=== PATIENT | female | born 1960 | race Caucasian/White ===

== ENCOUNTER 2017-11-27 08:42 | Inpatient (IN) | payer OTHER ==
[2017-11-27 08:52] VITALS: BMI 37.0
--- NOTE | 2017-11-27 09:29 | PDOC ---
History of Present Illness - General History Source: Patient Exam Limitations: No Limitations - History of Present Illness Initial Comments: 11/27/17 10:41 The patient is a 57 year old female with a significant PMH of HTN, hyperlipidemia, cardiac stent placement, diverticulosis, and chronic constipation who presents to the emergency department with worsening right sided facial swelling beginning approximately 3 days ago. She reports her swelling initially began in the right lower cheek but has since spread to the tissue under her right eye and the right submental region. She reports seeing Dr. Moran yesterday and being prescribed Clindamycin but presents today after her swelling has not subsided. She reports facial pain only when she opens her mouth wide. The patient denies any difficulty swallowing or breathing She denies any limitations in neck movement. The patient denies chest pain, shortness of breath, headache and dizziness. Denies fever, chills, nausea, vomit, diarrhea and constipation. Denies dysuria, frequency, urgency and hematuria. Allergies: Naproxen sodium. Lactose Past surgical history: Cardiac stent placement (2014). Social history: Current everyday smoker. No reported alcohol or drug use. PCP: Dr. Moran <Davey Dangelo - Last Filed: 11/27/17 10:42> - General History Source: Patient Exam Limitations: No Limitations <Taya Camarena - Last Filed: 11/30/17 19:54> - General Chief Complaint: Edema Stated Complaint: FACE SWELLING Time Seen by Provider: 11/27/17 09:28 Past History <Davey Dangelo - Last Filed: 11/27/17 10:42> - Past Medical History COPD: No GI Disorders: Yes (diverticulosis, chronic constipation) HTN: Yes Hypercholesterolemia: Yes - Surgical History Cardiac Surgery: Yes (stent 2014) - Immunization History Immunization Up to Date: Yes - Suicide/Smoking/Psychosocial Hx Smoking Status: Yes Smoking History: Current every day smoker Have you smoked in the past 12 months: No Number of Cigarettes Smoked Daily: 5 If you are a former smoker, when did you quit?: couple of months Information on smoking cessation initiated: No 'Breaking Loose' booklet given: 03/15/15 Hx Alcohol Use: No Drug/Substance Use Hx: No Substance Use Type: None Hx Substance Use Treatment: No <Taya Camarena - Last Filed: 11/30/17 19:54> - Past Medical History Allergies/Adverse Reactions: Allergies Allergy/AdvReac Type Severity Reaction Status Date / Time naproxen sodium [From Aleve] AdvReac Rash Verified 11/27/17 08:44 LACTOSE Allergy Uncoded 11/27/17 08:44 Home Medications: Ambulatory Orders Aspirin [ASA -] 81 mg PO HS 08/26/14 Olmesartan/Hydrochlorothiazide [Benicar Hct 40-12.5 mg Tablet] 1 each PO DAILY 08/26/14 Nebivolol [Bystolic -] 10 mg PO DAILY 11/08/15 Amlodipine Besylate [Norvasc -] 5 mg PO DAILY tablet 11/09/15 Clopidogrel Bisulfate [Plavix -] 75 mg PO DAILY tablet 11/09/15 Polyethylene Glycol 3350 [Miralax 119 gm Btl -] 17 gm PO DAILY bottle 11/09/15 Rosuvastatin [Crestor -] 5 mg PO HS tablet 11/09/15 Amox-Tr/K Cl [Augmentin - 875Mg Tablet] 1 tab PO BID #10 tablet MDD 2 11/29/17 Review of Systems - Review of Systems Able to Perform ROS?: Yes Comments:: 11/27/17 10:41 GENERAL/CONSTITUTIONAL: No fever or chills. No weakness. HEAD, EYES, EARS, NOSE AND THROAT: No change in vision. No ear pain or discharge. No sore throat. CARDIOVASCULAR: No chest pain or shortness of breath. RESPIRATORY: No cough, wheezing, or hemoptysis. GASTROINTESTINAL: No nausea, vomiting, diarrhea or constipation. GENITOURINARY: No dysuria, frequency, or change in urination. MUSCULOSKELETAL: (+) Right sided cheek, jaw, and submental swelling. No neck or back pain. SKIN: No rash NEUROLOGIC: No headache, vertigo, loss of consciousness, or change in strength/ sensation. ENDOCRINE: No increased thirst. No abnormal weight change. HEMATOLOGIC/LYMPHATIC: No anemia, easy bleeding, or history of blood clots. ALLERGIC/IMMUNOLOGIC: No hives or skin allergy. <Davey Dangelo - Last Filed: 11/27/17 10:42> *Physical Exam - Vital Signs Last Vital Signs Temp Pulse Resp BP Pulse Ox 98.2 F 92 H 16 140/82 98 11/27/17 08:46 11/27/17 08:46 11/27/17 08:46 11/27/17 08:46 11/27/17 09:35 - Physical Exam Comments: 11/27/17 10:42 GENERAL: Awake, alert, and fully oriented, in no acute distress HEAD: (+) Right mandible swelling. (+) Right cheek swelling with tenderness, no erythema. (+) Submental swelling, no erythema. EYES: PERRLA, EOMI, sclera anicteric, conjunctiva clear ENT: Auricles normal inspection, hearing grossly normal, nares patent, oropharynx clear without exudates. Moist mucosa. No drooling. NECK: Normal ROM, supple, no lymphadenopathy, JVD, or masses LUNGS: Breath sounds equal, clear to auscultation bilaterally. No wheezes, and no crackles HEART: Regular rate and rhythm, normal S1 and S2, no murmurs, rubs or gallops ABDOMEN: Soft, nontender, normoactive bowel sounds. No guarding, no rebound. No masses EXTREMITIES: Normal range of motion, no edema. No clubbing or cyanosis. No cords, erythema, or tenderness NEUROLOGICAL: Cranial nerves II through XII grossly intact. Normal speech, normal gait SKIN: Warm, Dry, normal turgor, no rashes or lesions noted. <Davey Dangelo - Last Filed: 11/27/17 10:42> - Vital Signs Last Vital Signs Temp Pulse Resp BP Pulse Ox 98.2 F 92 H 16 140/82 98 11/27/17 08:46 11/27/17 08:46 11/27/17 08:46 11/27/17 08:46 11/27/17 08:46 <Taya Camarena - Last Filed: 11/30/17 19:54> ED Treatment Course - LABORATORY CBC & Chemistry Diagram: 11/27/17 09:39 11/27/17 09:39 - ADDITIONAL ORDERS Additional order review: 11/27/17 09:39 RBC 5.21 H D MCV 86.5 MCHC 33.3 RDW 13.7 MPV 7.5 Neutrophils % 67.0 Lymphocytes % 26.5 D Monocytes % 5.0 Eosinophils % 1.2 Basophils % 0.3 - Consult/PCP Time Called: 10:10 Case discussed with personal care physician: Ehsan Moran <Davey Dangelo - Last Filed: 11/27/17 10:42> - LABORATORY CBC & Chemistry Diagram: 11/27/17 09:39 11/27/17 09:39 <Taya Camarena - Last Filed: 11/30/17 19:54> Medical Decision Making - Medical Decision Making 11/27/17 09:44 This is a 57-year-old female with a history of hypertension, coronary artery disease status post a single stent who presents emergency department due to facial swelling. Patient states she was in her usual state of health until possibly 4 days ago when she noted right facial swelling and pain. Pain was located at the mandible. Patient states her swelling increased such that involve the entire right side of her face. She was seen by her primary care physician yesterday. Clindamycin was initiated, however her swelling worsened to now involve the submandibular area. No fever, no chills. No wheezing. No difficulty swallowing. No prior episodes like this. Differential diagnosis includes but is not limited to: Periapical abscess, facial abscess, Will do: Labs, IV antibiotics, facial bones and soft tissue neck with contrast Plan will be for admission Consult to ID weight loss consultant Dr Jimenez is in the ER She was consulted on this patient 11/27/17 10:57 Laboratory Tests 11/27/17 11/27/17 09:39 09:39 WBC 7.2 Hgb 15.0 D Hct 45.0 D Plt Count 167 Sodium 139 Potassium 3.9 Chloride 104 Carbon Dioxide 28 BUN 12 Creatinine 0.5 L Random Glucose 109 H 11/27/17 11:25 EKG: SR rate of 72 bpm, axis is nml, intervals nml, no ST elevations or depressions CT delayed call placed to radiologist He states he is having difficulty reading this CT scan Does not believe the source of this infection is this patient's dentition Dr Jimenez has seen this patient Recommends Vancomycin and Unasyn These medications were ordered Clinical impression: facial abscess, initial presentation <Taya Camarena - Last Filed: 11/30/17 19:54> *DC/Admit/Observation/Transfer - Attestations Scribe Attestion: 11/27/17 10:42 Documentation prepared by Davey Dangelo, acting as district medical examiner for Taya Camarena MD. <Davey Dangelo - Last Filed: 11/27/17 10:42> - Discharge Dispostion Admit: Yes <Taya Camarena - Last Filed: 11/30/17 19:54> Diagnosis at time of Disposition: Facial abscess - Discharge Dispostion Disposition: HOME Condition at time of disposition: Improved
[2017-11-27] MEDS ORDERED: SODIUM CHLORIDE 1,000 ML IV STA (09:36)
[2017-11-27 10:12] LABS: BASO % 0.3 % (0-2.0); EOS % 1.2 % (0-4.5); LYMPH % 26.5 % (8-40); MCH 28.8 pg (25.7-33.7); MCHC 33.3 g/dl (32.0-36.0); MEAN CELL VOLUME 86.5 fl (80-96); MEAN PLT VOLUME 7.5 fl (7.5-11.1); PLATELET COUNT 167 K/MM3 (134-434); RBC 5.21 M/mm3 (3.60-5.2); RDW 13.7 % (11.6-15.6); WHITE BLOOD COUNT 7.2 K/mm3 (4.0-10.0)
[2017-11-27 10:37] LABS: ALBUMIN 3.8 g/dl (3.4-5.0); ALK PHOS 93 U/L (45-117); ANION GAP 7 (8-16); BILIRUBIN,TOTAL 0.4 mg/dL (0.2-1.0); BLOOD UREA NITROGEN 12 mg/dL (7-18); CALCIUM 8.6 mg/dL (8.5-10.1); CHLORIDE 104 mmol/L (98-107); CO2 28 mmol/L (21-32); CREATININE 0.5 mg/dL (0.55-1.02); GLUCOSE,RANDOM 109 mg/dL (74-106); POTASSIUM 3.9 mmol/L (3.5-5.1); SGOT/AST 18 U/L (15-37); SGPT/ALT 33 U/L (12-78); SODIUM 139 mmol/L (136-145)
[2017-11-27] MEDS ORDERED: ACETAMINOPHEN 1000 MG/100 ML VIAL (NON FORMULARY) IVPB ONE (13:03)
[2017-11-27] MEDS ORDERED: INSULIN (NOVOLOG) ASPART 100 UNITS/ML 10ML VIAL ONE (13:04)
[2017-11-27] MEDS ORDERED: ACETAMINOPHEN INJECTION 100 ML IVPB ONE (13:05)
--- NOTE | 2017-11-27 14:44 | PDOC ---
ED Treatment Course - LABORATORY CBC & Chemistry Diagram: 11/27/17 09:39 11/27/17 09:39 - ADDITIONAL ORDERS Additional order review: Laboratory Results 11/27/17 09:39 Sodium 139 Potassium 3.9 Chloride 104 Carbon Dioxide 28 Anion Gap 7 L BUN 12 Creatinine 0.5 L Creat Clearance w eGFR > 60 Random Glucose 109 H Calcium 8.6 Total Bilirubin 0.4 D AST 18 ALT 33 Alkaline Phosphatase 93 Total Protein 7.0 Albumin 3.8 11/27/17 09:39 RBC 5.21 H D MCV 86.5 MCHC 33.3 RDW 13.7 MPV 7.5 Neutrophils % 67.0 Lymphocytes % 26.5 D Monocytes % 5.0 Eosinophils % 1.2 Basophils % 0.3 - RADIOLOGY Radiology Studies Ordered: Category Date Time Status FACIAL BONES CT W/O CONTRAST [CT] Stat CT Scan 11/27/17 09:36 [address] TISSUE NECK [address] WITH CONTR [CT] Stat CT Scan 11/27/17 09:36 Taken CHEST PA & LAT [RAD] Stat Radiology 11/27/17 09:48 Completed - Medications Given in the ED: ED Medications Discontinued Medications Generic Name Dose Route Start Last Admin Trade Name Freq PRN Reason Stop Dose Admin Acetaminophen 1,000 mg 11/27/17 13:03 11/27/17 13:13 Ofirmev Injection - IVPB 11/27/17 13:04 1,000 mg ONCE ONE Administration - Consult/PCP Time Called: 10:10 Case discussed with personal care physician: Ehsan Moran *DC/Admit/Observation/Transfer Diagnosis at time of Disposition: Facial abscess - Discharge Dispostion Condition at time of disposition: Stable Admit: Yes - Referrals Referrals: Ehsan Moran MD [Primary Care Provider] - - Patient Instructions - Post Discharge Activity
[2017-11-27] MEDS ORDERED: ACETAMINOPHEN 325 MG TABLET (FP) PO PRN (15:50)
--- NOTE | 2017-11-27 16:24 | CON.ID ---
Consult Consult Specialty:: infectous disease Referred by:: subhash Reason for Consultation:: right facial swellilng - History of Present Illness Chief Complaint: right facial swelling History of Present Illness: 57 year old female admitted from home- no fevers, no DM- developed right cheek swelling, went to see Dr Moran, started on Clindamycin this am woke up with edema and erythema extending to her right cheek and neck no fevers no dental work has upper dentures, lower partials history of sinus infections no sore throat- history of tonsillectomy many years ago no scratches no difficulty swallowing - History Source History Provided By: Patient, Significant Other Limitations to Obtaining History: No Limitations - Past Medical History Cardio/Vascular: Yes: CAD, HTN Gastrointestinal: Yes: Constipation, Diverticulosis, Irritable Bowel Disease ...LMP: 01/12/14 - Past Surgical History Past Surgical History: Yes: Colonoscopy Additional Surgical History: tonsillectomy, left wrist surgery - Alcohol/Substance Use Hx Alcohol Use: No - Smoking History Smoking history: Current every day smoker Have you smoked in the past 12 months: No Aproximately how many cigarettes per day: 5 If you are a former smoker, when did you quit?: couple of months - Social History Usual Living Arrangement: With Significant Other ADL: 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 - Allergies Allergies/Adverse Reactions: Allergies Allergy/AdvReac Type Severity Reaction Status Date / Time naproxen sodium [From Aleve] AdvReac Rash Verified 11/27/17 08:44 LACTOSE Allergy Uncoded 11/27/17 08:44 - Home Medications Home Medications: Ambulatory Orders Aspirin [ASA -] 81 mg PO HS 08/26/14 Olmesartan/Hydrochlorothiazide [Benicar Hct 40-12.5 mg Tablet] 1 each PO DAILY 08/26/14 Nebivolol [Bystolic -] 10 mg PO DAILY 11/08/15 Amlodipine Besylate [Norvasc -] 5 mg PO DAILY tablet 11/09/15 Clopidogrel Bisulfate [Plavix -] 75 mg PO DAILY tablet 11/09/15 Polyethylene Glycol 3350 [Miralax 119 gm Btl -] 17 gm PO DAILY bottle 11/09/15 Rosuvastatin [Crestor -] 5 mg PO HS tablet 11/09/15 Family Disease History - Family Disease History Family History: Unremarkable Review of Systems - Review of Systems Constitutional: denies: Chills, Fever Eyes: reports: No Symptoms. denies: Blind Spots, Double Vision HENT: reports: No Symptoms. denies: Difficult Swallowing Neck: reports: No Symptoms Cardiovascular: reports: No Symptoms. denies: Chest Pain Respiratory: reports: No Symptoms. denies: Cough Gastrointestinal: reports: No Symptoms. denies: Abdominal Pain Genitourinary: reports: No Symptoms Breasts: reports: No Symptoms Reported Musculoskeletal: reports: No Symptoms Integumentary: reports: No Symptoms Physical Exam Vital Signs: Vital Signs Temperature 98.2 F 11/27/17 08:46 Pulse Rate 92 H 11/27/17 08:46 Respiratory Rate 16 11/27/17 08:46 Blood Pressure 140/82 11/27/17 08:46 O2 Sat by Pulse Oximetry (%) 98 11/27/17 09:35 Constitutional: Yes: Well Nourished, No Distress Eyes: Yes: Conjunctiva Clear, EOM Intact HENT: Yes: Atraumatic, Normocephalic, Other (induration right cheek swelling right cheek). No: Nasal Congestion, Pharyngeal Erythema, Thrush, Tonsillar Exudate Neck: Yes: Supple Cardiovascular: Yes: Regular Rate and Rhythm Respiratory: Yes: Regular, CTA Bilaterally Gastrointestinal: Yes: Normal Bowel Sounds, Soft. No: Tenderness, Epigastrium ...Rectal Exam: Yes: Deferred Extremities: Yes: WNL Edema: No Psychiatric: Yes: Alert, Oriented Labs: CBC, BMP 11/27/17 09:39 11/27/17 09:39 Imaging - Results Chest X-ray: Report Reviewed (ct can reviewed- small collection anterior to the right mandible, no parotid swelling no dental or maxillary sinus disease) Problem List - Problems (1) Facial abscess Code(s): L02.01 - CUTANEOUS ABSCESS OF FACE Assessment/Plan probable earlly facial abscess- ?source vanco/unasyn for now she is a smoker- would need ENT eval either inpt or outpt given ct scan findings to r/o malignancy thanks
[2017-11-27] MEDS ORDERED: AMPICILLIN NA/SULBACTAM NA 1.5 GM in SODIUM CHLORIDE 100 ML IVPB ONE (17:16)
--- NOTE | 2017-11-27 17:34 | HP ---
Admitting History and Physical - Primary Care Physician PCP: Ehsan Moran - Admission Chief Complaint: FACIAL ABSCESS WORSENING FAILED ON ORAL ABX History of Present Illness: 57 Y/O FEMALE HISTORY OF CAD, HTN, LIPIDEMIA, OBESITY, TOBACCO SMOKER HERE WITH WORSENING OF FACIAL ABSCESS RIGHT SIDED. PATIENT WAS STARTED ON CLINDAMYCIN OUTPATIENT AND FAILED. 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 - Allergies Allergies/Adverse Reactions: Allergies Allergy/AdvReac Type Severity Reaction Status Date / Time naproxen sodium [From Aleve] AdvReac Rash Verified 11/27/17 08:44 LACTOSE Allergy Uncoded 11/27/17 08:44 - Home Medications Home Medications: Ambulatory Orders Aspirin [ASA -] 81 mg PO HS 08/26/14 Olmesartan/Hydrochlorothiazide [Benicar Hct 40-12.5 mg Tablet] 1 each PO DAILY 08/26/14 Nebivolol [Bystolic -] 10 mg PO DAILY 11/08/15 Amlodipine Besylate [Norvasc -] 5 mg PO DAILY tablet 11/09/15 Clopidogrel Bisulfate [Plavix -] 75 mg PO DAILY tablet 11/09/15 Polyethylene Glycol 3350 [Miralax 119 gm Btl -] 17 gm PO DAILY bottle 11/09/15 Rosuvastatin [Crestor -] 5 mg PO HS tablet 11/09/15 Review of Systems - Review of Systems Constitutional: reports: Fever, Weakness Eyes: reports: Other HENT: reports: Nasal Congestion (RIGHT SIDED FACIAL EDEMA TENDERNESS), Other Neck: reports: Swollen Glands, Other (RIGHT SIDED NECK EDEMA) Cardiovascular: reports: No Symptoms Respiratory: reports: No Symptoms Gastrointestinal: reports: No Symptoms Musculoskeletal: reports: No Symptoms Integumentary: reports: No Symptoms Neurological: reports: No Symptoms Endocrine: reports: No Symptoms Hematology/Lymphatic: reports: No Symptoms Psychiatric: reports: No Symptoms Physical Examination Vital Signs: Vital Signs Temperature 98.2 F 11/27/17 08:46 Pulse Rate 92 H 11/27/17 08:46 Respiratory Rate 16 11/27/17 08:46 Blood Pressure 140/82 11/27/17 08:46 O2 Sat by Pulse Oximetry (%) 98 11/27/17 09:35 Constitutional: Yes: Moderate Distress Eyes: Yes: Other HENT: Yes: Other Neck: Yes: Other (RIGHT SIDED FACIAL EDEMA EXTENDING DOWN TO NECK RIGHT SIDED WITH TENDERNESS) Cardiovascular: Yes: WNL Respiratory: Yes: WNL Gastrointestinal: Yes: WNL Renal/: Yes: WNL Musculoskeletal: Yes: WNL Extremities: Yes: WNL Edema: No Peripheral Pulses WNL: Yes Integumentary: Yes: WNL Wound/Incision: Yes: Clean/Dry Neurological: Yes: WNL ...Motor Strength: WNL Psychiatric: Yes: WNL Labs: CBC, BMP 11/27/17 09:39 11/27/17 09:39 Imaging - Results Cat Scan: Report Reviewed Problem List - Problems (1) Facial abscess Assessment/Plan: FAILED ON ORAL ANTIBIOTICS OUTPATIENT Code(s): L02.01 - CUTANEOUS ABSCESS OF FACE Assessment/Plan ID/ENT CONSULT HEAD AND NECK SURGERY EVAL IV ABX TYLENOL PRN
[2017-11-27] MEDS ORDERED: VANCOMYCIN 1,000 MG in DEXTROSE 5%-WATER - 250 ML IVPB SCH (22:00)
[2017-11-27] MEDS: ROSUVASTATIN CA 5 MG TABLET (FP) PO SCH (23:00)
[2017-11-27] MEDS ORDERED: VANCOMYCIN 1,000 MG in DEXTROSE 5%-WATER - 250 ML IVPB ONE (23:30)
--- NOTE | 2017-11-28 09:18 | CONSULT ---
Consult Consult Specialty:: Surgery, Head and Neck surgery. Referred by:: Luisa Celaya Reason for Consultation:: Right sided facial pain, and swelling. - History of Present Illness Chief Complaint: C/O Pain and selling of the right side of her face and right upper neck for the last 5 days. She woke up with swelling and pain . She has dentures and is edentulous. She has been on antibiotics for the past 3 days. History of Present Illness: 57 year old , woman c/o pain and swelling of the left side of her face and right - History Source History Provided By: Patient Limitations to Obtaining History: No Limitations - Past Medical History Cardio/Vascular: Yes: CAD, HTN Gastrointestinal: Yes: Constipation, Diverticulosis, Irritable Bowel Disease ...LMP: 01/12/14 ...: No - Past Surgical History Past Surgical History: Yes: Colonoscopy Additional Surgical History: tonsillectomy, left wrist surgery - Alcohol/Substance Use Hx Alcohol Use: No - Smoking History Smoking history: Former smoker Have you smoked in the past 12 months: Yes Aproximately how many cigarettes per day: 5 If you are a former smoker, when did you quit?: couple of months - Social History Usual Living Arrangement: With Significant Other ADL: 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 - Allergies Allergies/Adverse Reactions: Allergies Allergy/AdvReac Type Severity Reaction Status Date / Time naproxen sodium [From Aleve] AdvReac Rash Verified 11/27/17 08:44 LACTOSE Allergy Uncoded 11/27/17 08:44 - Home Medications Home Medications: Ambulatory Orders Aspirin [ASA -] 81 mg PO HS 08/26/14 Olmesartan/Hydrochlorothiazide [Benicar Hct 40-12.5 mg Tablet] 1 each PO DAILY 08/26/14 Nebivolol [Bystolic -] 10 mg PO DAILY 11/08/15 Amlodipine Besylate [Norvasc -] 5 mg PO DAILY tablet 11/09/15 Clopidogrel Bisulfate [Plavix -] 75 mg PO DAILY tablet 11/09/15 Polyethylene Glycol 3350 [Miralax 119 gm Btl -] 17 gm PO DAILY bottle 11/09/15 Rosuvastatin [Crestor -] 5 mg PO HS tablet 11/09/15 Physical Exam Vital Signs: Vital Signs Temperature 97.7 F 11/28/17 08:15 Pulse Rate 82 11/28/17 08:15 Respiratory Rate 18 11/28/17 08:15 Blood Pressure 144/75 11/28/17 08:15 O2 Sat by Pulse Oximetry (%) 96 11/28/17 04:05 HENT: Yes: Other (Oral cavity is normal. The tongue and floor of mouth is smooth , not indurated , No blood in the oral cavity. With a finger in the oral mcavity and palpation of the right cheek , a smooth tender round , mobile mass is p[alpated , ? parotid lymph node on the right.) Neck: Yes: Lymphadenopathy (? Right upper cervical lymphadenopathy. smooth , ill defined.) Labs: CBC, BMP 11/27/17 09:39 11/27/17 09:39 Imaging - Results Cat Scan: Report Reviewed, Image Reviewed Problem List - Problems (1) Lymphadenopathy of head and neck region Code(s): R59.0 - LOCALIZED ENLARGED LYMPH NODES (2) Enlarged lymph node in neck Code(s): R59.0 - LOCALIZED ENLARGED LYMPH NODES (3) Swelling of right side of face Code(s): R22.0 - LOCALIZED SWELLING, MASS AND LUMP, HEAD (4) Abnormal CT scan, neck Code(s): R93.8 - ABNORMAL FINDINGS ON DIAGNOSTIC IMAGING OF BODY STRUCTURES (5) Hypertension Code(s): I10 - ESSENTIAL (PRIMARY) HYPERTENSION (6) Coronary artery disease Code(s): I25.10 - ATHSCL HEART DISEASE OF [place] CORONARY ARTERY W/O ANG PCTRS (7) Coronary artery disease Code(s): I25.10 - ATHSCL HEART DISEASE OF [place] CORONARY ARTERY W/O ANG PCTRS Qualifiers: Coronary Disease-Associated Artery/Lesion type: unspecified vessel or lesion type Associated angina: without angina Assessment/Plan ? Probably an inflammatory process in the head and neck , with lymphadenitis. Continue antibiotics. Follow up Ct scan of head and neck and may be examination of the head and neck and direct laryngoscopy , under anesthesia to rule out head and neck malignancy, as patient is a smoker. patient is informed , will follow.
[2017-11-28] MEDS ORDERED: AMPICILLIN NA/SULBACTAM NA 1.5 GM in SODIUM CHLORIDE 100 ML IVPB ONE (10:04)
--- NOTE | 2017-11-28 10:10 | PN ---
Progress Note, Physician Chief Complaint: right facial swelling reduced per patient got iv vancomycin and iv Unasyn in ER seen by Surgery will need laryngoscope under GA will need cardiac clearance- will get cardiology to see patient - Current Medication List Current Medications: Active Medications Acetaminophen (Tylenol -) 650 mg PO Q6H PRN PRN Reason: PAIN LEVEL 1 - 3 Clopidogrel Bisulfate (Plavix -) 75 mg PO DAILY [facility] Hydrochlorothiazide (Hctz -) 12.5 mg PO DAILY [facility] Nebivolol (Bystolic -) 10 mg PO DAILY [facility] Rosuvastatin Calcium (Crestor -) 5 mg PO HS [facility] Last Admin: 11/27/17 23:00 Dose: 5 mg Valsartan (Diovan -) 160 mg PO DAILY [facility] - Objective Vital Signs: Vital Signs Temperature 97.7 F 11/28/17 08:15 Pulse Rate 82 11/28/17 08:15 Respiratory Rate 18 11/28/17 08:15 Blood Pressure 144/75 11/28/17 08:15 O2 Sat by Pulse Oximetry (%) 96 11/28/17 04:05 Constitutional: Yes: Calm HENT: Yes: Other (right facial swelling) Cardiovascular: Yes: Regular Rate and Rhythm, S1, S2 Respiratory: Yes: CTA Bilaterally Gastrointestinal: Yes: Normal Bowel Sounds, Soft Neurological: Yes: Alert, Oriented Labs: CBC, BMP 11/27/17 09:39 11/27/17 09:39 Problem List - Problems (1) Abnormal CT scan, neck Assessment/Plan: hypodensity noted overlying the buccal cortex in right mandible - h/o smoking will need laryngoscope under GA seen by surgery will need to be off plavix for atleast 3-4 days will need to get this procedure as outpatient when ready Code(s): R93.8 - ABNORMAL FINDINGS ON DIAGNOSTIC IMAGING OF BODY STRUCTURES (2) Enlarged lymph node in neck Assessment/Plan: iv abx per ID got vancomycin in ER Code(s): R59.0 - LOCALIZED ENLARGED LYMPH NODES (3) Swelling of right side of face Assessment/Plan: see above much improved Code(s): R22.0 - LOCALIZED SWELLING, MASS AND LUMP, HEAD
[2017-11-28] MEDS ORDERED: PT OWN MED DRAWER 7, Y5N ONE ×2 (10:45→10:55)
[2017-11-28] MEDS: VALSARTAN 160 MG TABLET (UD) PO SCH (10:47)
[2017-11-28] MEDS: NEBIVOLOL 10 MG TABLET (FP) PO SCH (10:48)
[2017-11-28] MEDS: HYDROCHLOROTHIAZIDE 12.5 MG CAPSULE (FP) PO SCH (10:50)
[2017-11-28] MEDS: CLOPIDOGREL BISULFATE 75 MG TABLET (FP) PO SCH ×2 (10:51→21:32)
[2017-11-28] MEDS ORDERED: VANCOMYCIN 1,250 MG in DEXTROSE 5%-WATER - 250 ML IVPB ONE (11:30)
--- NOTE | 2017-11-28 11:46 | EKG ---
Test Reason : Blood Pressure : / mmHG Vent. Rate : 072 BPM Atrial Rate : 072 BPM P-R Int : 162 ms QRS Dur : 074 ms QT Int : 392 ms P-R-T Axes : 057 012 002 degrees QTc Int : 429 ms POOR DATA QUALITY, INTERPRETATION MAY BE ADVERSELY AFFECTED NORMAL SINUS RHYTHM SEPTAL INFARCT , AGE UNDETERMINED ABNORMAL ECG WHEN COMPARED WITH ECG OF 20-JAN-2016 22:55, NO SIGNIFICANT CHANGE WAS FOUND Confirmed by NEYDA BLANKENSHIP, ANTHONY ([id number]) on 11/28/2017 11:46:15 AM Referred By: Confirmed By:ANTHONY FAYE MD
--- NOTE | 2017-11-28 12:05 | CON.CARD ---
Cardiology Consult (text) - Consultation Consultation Note: cc: facial abscess/pain hpi: 57 f hx htn, hld, obesity, IBS, cad s/p remote pci sent by pmd for face infection. No cardiac sxs. No cp, sob, palps, dizzy, loc, pnd, orthopnea, le edema. Sees dr shrestha for cardio. pmh: per hpi psh: wrist surgery fam: mom mi 59, brother had pci, +htn, +dm, no scd social: ex tob ros: per hpi; no fever, vision changes, GOOD, wt loss, cough, gib, hematuria, dysuria meds: Home Medications Medication Instructions Recorded Aspirin [ASA -] 81 mg PO HS 08/26/14 Olmesartan/Hydrochlorothiazide 1 each PO DAILY 08/26/14 [Benicar Hct 40-12.5 mg Tablet] Nebivolol [Bystolic -] 10 mg PO DAILY 11/08/15 Amlodipine Besylate [Norvasc -] 5 mg PO DAILY tablet 11/09/15 Clopidogrel Bisulfate [Plavix -] 75 mg PO DAILY tablet 11/09/15 Polyethylene Glycol 3350 [Miralax 17 gm PO DAILY bottle 11/09/15 119 gm Btl -] Rosuvastatin [Crestor -] 5 mg PO HS tablet 11/09/15 pe: Vital Signs Period Temp Pulse Resp BP Sys/Mejia Pulse Ox Last 24 Hr 97.7 F-98.9 F 78-85 18-20 118-144/66-83 96-96 nad, no jvd rrr s1s2 no mrg cta bl nl eff aaox3 no le e/c/c abd nt nd pos bs no jaundice diaphoresis pos dp pt Laboratory Last Values WBC 7.2 K/mm3 (4.0-10.0) 11/27/17 09:39 RBC 5.21 M/mm3 (3.60-5.2) H D 11/27/17 09:39 Hgb 15.0 GM/dL (10.7-15.3) D 11/27/17 09:39 Hct 45.0 % (32.4-45.2) D 11/27/17 09:39 MCV 86.5 fl (80-96) 11/27/17 09:39 MCH 28.8 pg (25.7-33.7) D 11/27/17 09:39 MCHC 33.3 g/dl (32.0-36.0) 11/27/17 09:39 RDW 13.7 % (11.6-15.6) 11/27/17 09:39 Plt Count 167 K/MM3 (134-434) 11/27/17 09:39 MPV 7.5 fl (7.5-11.1) 11/27/17 09:39 Neutrophils % 67.0 % (42.8-82.8) 11/27/17 09:39 Lymphocytes % 26.5 % (8-40) D 11/27/17 09:39 Monocytes % 5.0 % (3.8-10.2) 11/27/17 09:39 Eosinophils % 1.2 % (0-4.5) 11/27/17 09:39 Basophils % 0.3 % (0-2.0) 11/27/17 09:39 Sodium 139 mmol/L (136-145) 11/27/17 09:39 Potassium 3.9 mmol/L (3.5-5.1) 11/27/17 09:39 Chloride 104 mmol/L (98-107) 11/27/17 09:39 Carbon Dioxide 28 mmol/L (21-32) 11/27/17 09:39 Anion Gap 7 (8-16) L 11/27/17 09:39 BUN 12 mg/dL (7-18) 11/27/17 09:39 Creatinine 0.5 mg/dL (0.55-1.02) L 11/27/17 09:39 Creat Clearance w eGFR > 60 (>60) 11/27/17 09:39 Random Glucose 109 mg/dL (74-106) H 11/27/17 09:39 Calcium 8.6 mg/dL (8.5-10.1) 11/27/17 09:39 Total Bilirubin 0.4 mg/dL (0.2-1.0) D 11/27/17 09:39 AST 18 U/L (15-37) 11/27/17 09:39 ALT 33 U/L (12-78) 11/27/17 09:39 Alkaline Phosphatase 93 U/L (45-117) 11/27/17 09:39 Total Protein 7.0 g/dl (6.4-8.2) 11/27/17 09:39 Albumin 3.8 g/dl (3.4-5.0) 11/27/17 09:39 cxr: clear lungs ecg: sr, nl intervals, no ischemic changes echo 06/2014: nl lv/rv, mild tr a/p: 57 f hx htn, hld, obesity, IBS, cad s/p remote pci sent by pmd for face infection. chronic CAD without angina: -echo 06/2014: nl lv/rv, mild tr -persantine nuclear 09/27: no STs; small apical ischemia; nl EF; no TID reported -saw dr emilio barksdale cardio at that time and had cath 09/27: 80% mid RCA, other vessels normal--Resolute KRANTHI implanted -no residual ischemic substrate on cath -then had nuclear stress test here 2015, report reviewed: moderate size anterior wall ischemia -nuclear stress test images reviewed by dr shrestha then: there is no suggestion of ischemia; there is a fixed defect of mid anterior wall and apex, with minimal reversibility in apex on rest images (i.e. almost entirely fixed); there is large breast attenuation on raw images which explains the appearance on perfusion scans; there is normal LV cavity size with no TID, and normal LVEF/ wall motion. -cont home asa, plavix, bb, statin -no further inpt cardio eval required htn: -cont home meds hld: -cont statin preop: -No unstable cardiac issues at present. Pt has intermediate risk of periop cardiac events for the possible laryngoscopy. Asa and plavix can be held temporarily if needed.
--- NOTE | 2017-11-28 14:38 | PN ---
Progress Note, Physician Chief Complaint: ID Vancomycin and Unasyn Looking at her cannot see anything on her face No fever - Current Medication List Current Medications: Active Medications Acetaminophen (Tylenol -) 650 mg PO Q6H PRN PRN Reason: PAIN LEVEL 1 - 3 Clopidogrel Bisulfate (Plavix -) 75 mg PO DAILY [facility] Last Admin: 11/28/17 10:51 Dose: Not Given Hydrochlorothiazide (Hctz -) 12.5 mg PO DAILY [facility] Last Admin: 11/28/17 10:50 Dose: 12.5 mg Ampicillin Sodium/Sulbactam (Sodium 1.5 gm/ Sodium Chloride) 100 mls @ 200 mls/ hr IVPB Q6H-IV AZALEA Vancomycin HCl 1,000 mg/ (Dextrose) 250 mls @ 166.667 mls/hr IVPB Q12H AZALEA PRN Reason: Protocol Nebivolol (Bystolic -) 10 mg PO DAILY [facility] Last Admin: 11/28/17 10:48 Dose: 10 mg Rosuvastatin Calcium (Crestor -) 5 mg PO HS [facility] Last Admin: 11/27/17 23:00 Dose: 5 mg Valsartan (Diovan -) 160 mg PO DAILY [facility] Last Admin: 11/28/17 10:47 Dose: 160 mg - Objective Vital Signs: Vital Signs Temperature 97.7 F 11/28/17 08:15 Pulse Rate 82 11/28/17 08:15 Respiratory Rate 18 11/28/17 08:15 Blood Pressure 144/75 11/28/17 08:15 O2 Sat by Pulse Oximetry (%) 96 11/28/17 04:05 Constitutional: Yes: Well Nourished, No Distress HENT: Yes: Other (Indurated cyst like strucure right cheek mild tenderness not fluctuant) Labs: CBC, BMP 11/27/17 09:39 11/27/17 09:39 Assessment/Plan Laboratory Tests 11/27/17 11/27/17 09:39 09:39 WBC 7.2 Hgb 15.0 D Hct 45.0 D Plt Count 167 BUN 12 Creatinine 0.5 L Assessment Right facial abscess improving Plan Consider switch to po augmentin 875 bid along with warm soaks [facility]
[2017-11-28] MEDS: AMPICILLIN NA/SULBACTAM NA 1.5 GM in SODIUM CHLORIDE 100 ML IVPB SCH ×2 (15:00→21:05)
--- NOTE | 2017-11-28 16:08 | PN ---
Progress Note, Physician - Current Medication List Current Medications: Active Medications Acetaminophen (Tylenol -) 650 mg PO Q6H PRN PRN Reason: PAIN LEVEL 1 - 3 Clopidogrel Bisulfate (Plavix -) 75 mg PO DAILY [facility] Last Admin: 11/28/17 10:51 Dose: Not Given Hydrochlorothiazide (Hctz -) 12.5 mg PO DAILY [facility] Last Admin: 11/28/17 10:50 Dose: 12.5 mg Ampicillin Sodium/Sulbactam (Sodium 1.5 gm/ Sodium Chloride) 100 mls @ 200 mls/ hr IVPB Q6H-IV [facility] Nebivolol (Bystolic -) 10 mg PO DAILY [facility] Last Admin: 11/28/17 10:48 Dose: 10 mg Rosuvastatin Calcium (Crestor -) 5 mg PO HS [facility] Last Admin: 11/27/17 23:00 Dose: 5 mg Valsartan (Diovan -) 160 mg PO DAILY [facility] Last Admin: 11/28/17 10:47 Dose: 160 mg - Objective Vital Signs: Vital Signs Temperature 98.5 F 11/28/17 14:56 Pulse Rate 77 11/28/17 14:56 Respiratory Rate 20 11/28/17 14:56 Blood Pressure 137/76 11/28/17 14:56 O2 Sat by Pulse Oximetry (%) 96 11/28/17 04:05 Labs: CBC, BMP 11/27/17 09:39 11/27/17 09:39 Problem List - Problems (1) Lymphadenopathy of head and neck region Code(s): R59.0 - LOCALIZED ENLARGED LYMPH NODES (2) Enlarged lymph node in neck Code(s): R59.0 - LOCALIZED ENLARGED LYMPH NODES (3) Swelling of right side of face Code(s): R22.0 - LOCALIZED SWELLING, MASS AND LUMP, HEAD (4) Abnormal CT scan, neck Code(s): R93.8 - ABNORMAL FINDINGS ON DIAGNOSTIC IMAGING OF BODY STRUCTURES (5) Hypertension Code(s): I10 - ESSENTIAL (PRIMARY) HYPERTENSION (6) Coronary artery disease Code(s): I25.10 - ATHSCL HEART DISEASE OF [place] CORONARY ARTERY W/O ANG PCTRS (7) Coronary artery disease Code(s): I25.10 - ATHSCL HEART DISEASE OF [place] CORONARY ARTERY W/O ANG PCTRS Qualifiers: Coronary Disease-Associated Artery/Lesion type: unspecified vessel or lesion type Associated angina: without angina Assessment/Plan CT scan was reviewed with radiologist. ? Prominent lingual tonsil , at the base of the tongue and epiglottis, vallecula. She will need upper endoscopy/ laryngoscopy , examination of oral cavity. The patient was explained. She smoked about 6 cigarettes a day. She is on anticoagulation and has cardiac stent. Discussed with Dr. Cruz and dr. Moran. Will need cardiac clearance and to withold anticaogulation. Will probably be done as an out patient when patient is cleared.
[2017-11-28] MEDS: ROSUVASTATIN CA 5 MG TABLET (FP) PO SCH (21:33)
[2017-11-28] MEDS: amLODIPine BESYLATE 5 MG TABLET (FP) PO SCH (22:22)
[2017-11-28] MEDS ORDERED: ASPIRIN 81 MG CHEWABLE TABLETS PO SCH (22:30)
[2017-11-29] MEDS ORDERED: VANCOMYCIN 1,000 MG in DEXTROSE 5%-WATER - 250 ML IVPB SCH (00:01)
[2017-11-29] MEDS: AMPICILLIN NA/SULBACTAM NA 1.5 GM in SODIUM CHLORIDE 100 ML IVPB SCH ×2 (02:19→09:55)
--- NOTE | 2017-11-29 08:55 | DS ---
Physical Examination Vital Signs: Vital Signs Temperature 98.4 F 11/29/17 06:00 Pulse Rate 87 11/29/17 06:00 Respiratory Rate 20 11/29/17 06:00 Blood Pressure 138/74 11/29/17 06:00 O2 Sat by Pulse Oximetry (%) 96 11/28/17 09:00 Constitutional: Yes: Calm Cardiovascular: Yes: Regular Rate and Rhythm, S1, S2 Respiratory: Yes: CTA Bilaterally Gastrointestinal: Yes: Normal Bowel Sounds, Soft Edema: No Neurological: Yes: Alert, Oriented Labs: CBC, BMP 11/27/17 09:39 11/27/17 09:39 Discharge Summary Reason For Visit: ABSCESS OF FACE Current Active Problems Abnormal CT scan, neck (Acute) Coronary artery disease (Acute) Coronary artery disease (Acute) Enlarged lymph node in neck (Acute) Facial abscess (Acute) Hypertension (Acute) Lymphadenopathy of head and neck region (Acute) Swelling of right side of face (Acute) Hospital Course: - Primary Care Physician PCP: Ehsan Moran - Admission Chief Complaint: FACIAL ABSCESS WORSENING FAILED ON ORAL ABX History of Present Illness: 57 Y/O FEMALE HISTORY OF CAD, HTN, LIPIDEMIA, OBESITY, TOBACCO SMOKER HERE WITH WORSENING OF FACIAL ABSCESS RIGHT SIDED. PATIENT WAS STARTED ON CLINDAMYCIN OUTPATIENT AND FAILED. History Source: Patient, Medical Record - Past Medical History Cardiovascular: Yes: CAD, HTN Gastrointestinal: Yes: Constipation, Diverticulosis, Irritable Bowel Disease ...LMP: 01/12/14 - Past Surgical History Past Surgical History: Yes: Colonoscopy - Smoking History Smoking history: Current every day smoker Have you smoked in the past 12 months: No Aproximately how many cigarettes per day: 5 If you are a former smoker, when did you quit?: couple of months ct scan shows ill defined density overlying the buccal cortex in body of mandible on right side , - will need laryngoscopy and EGD as outpatient bc will need to hold off plavix for atleast 3-4 days explanied to patient she will make apointment and FU with PMD right facial swelling got vancomycin and unasyn and now improved willl change to po augmentin 875mg po bid for 5 days with warm soaks bid seen by cardiology - cleared for EGD but will need to be off plavix Condition: Improved - Instructions Diet, Activity, Other Instructions: augmentin 875mg po bid for 5 days Referrals: Ehsan Moran MD [Primary Care Provider] - Lizy Howell MD [Staff Physician] - 2 Weeks (schedule for laryngoscopy) - Home Medications Comprehensive Discharge Medication List: Ambulatory Orders Aspirin [ASA -] 81 mg PO HS 08/26/14 Olmesartan/Hydrochlorothiazide [Benicar Hct 40-12.5 mg Tablet] 1 each PO DAILY 08/26/14 Nebivolol [Bystolic -] 10 mg PO DAILY 11/08/15 Amlodipine Besylate [Norvasc -] 5 mg PO DAILY tablet 11/09/15 Clopidogrel Bisulfate [Plavix -] 75 mg PO DAILY tablet 11/09/15 Polyethylene Glycol 3350 [Miralax 119 gm Btl -] 17 gm PO DAILY bottle 11/09/15 Rosuvastatin [Crestor -] 5 mg PO HS tablet 11/09/15
[2017-11-29] MEDS ORDERED: PT OWN MED DRAWER 7, Y5N ONE (09:53)
[2017-11-29] MEDS: amLODIPine BESYLATE 5 MG TABLET (FP) PO SCH (09:56)
[2017-11-29] MEDS: CLOPIDOGREL BISULFATE 75 MG TABLET (FP) PO SCH (09:56)
[2017-11-29] MEDS: HYDROCHLOROTHIAZIDE 12.5 MG CAPSULE (FP) PO SCH (09:56)
[2017-11-29] MEDS: VALSARTAN 160 MG TABLET (UD) PO SCH (09:56)
[2017-11-29] MEDS: NEBIVOLOL 10 MG TABLET (FP) PO SCH (09:57)
[2017-11-29 10:06] VITALS: BP 127/84; PULSE 83; TEMP 97.9
== END 2017-11-29 11:32 | disposition home or self-care (01) | DRG 603 ==
LOC: JER 08:42 → JERBED 14:44 → J5S 11-28 03:18
PROVIDERS: ADMIT Family Medicine; ATTEND Family Medicine
DX: L02.01 Cutaneous abscess of face (principal); F17.210 Nicotine dependence, cigarettes, uncomplicated; I25.10 Atherosclerotic heart disease of native coronary artery without angina pectoris; R59.0 Localized enlarged lymph nodes; E66.9 Obesity, unspecified; Z68.38 Body mass index [BMI] 38.0-38.9, adult; Z98.61 Coronary angioplasty status; I10 Essential (primary) hypertension; E78.5 Hyperlipidemia, unspecified
CPT/HCPCS: 36415; 70486-TC; 70491-TC; 71046-TC-FY; 80053; 85025; 87040; 93005; 93010; 99285-25

== ENCOUNTER 2018-03-20 12:42 | Day surgery (SDC) | payer OTHER ==
[2018-03-19 16:16] VITALS: BMI 36.7
[2018-03-20] MEDS ORDERED: LIDOCAINE HCL 2% (20ML MULTI-DOSE VIAL) NR ONE (14:17)
[2018-03-20] MEDS ORDERED: PROPOFOL 20 ML ONE ×2 (14:17)
[2018-03-20 15:05] VITALS: TEMP 98.2
[2018-03-20 15:07] VITALS: PULSE 72
[2018-03-20 15:36] VITALS: BP 133/65
== END 2018-03-20 15:42 | disposition home or self-care (01) ==
LOC: JASU-ENDO 12:42
PROVIDERS: ATTEND Surgery
PROC: 0DJ08ZZ Inspection of Upper Intestinal Tract, Via Natural or Artificial Opening Endoscopic (ICD-10-PCS; principal; 2018-03-20 13:30)
DX: Z01.818 Encounter for other preprocedural examination (principal); E66.01 Morbid (severe) obesity due to excess calories

== ENCOUNTER 2018-04-26 12:03 | Emergency (ER) | payer OTHER ==
[2018-04-26 12:28] VITALS: BP 145/73; PULSE 80; TEMP 98.1; BMI 38.5
--- NOTE | 2018-04-26 13:09 | PDOC ---
History of Present Illness - General Chief Complaint: Pain Stated Complaint: FALL/ LT SHOULDER PAIN - History of Present Illness Initial Comments: 58-year-old female with traumatic onset of left shoulder pain. She states she fell last night and been having left shoulder pain since. She has a past medical history significant for hypertension and coronary artery disease she takes by [place] Plavix. She has stopped Plavix because she is scheduled for an upcoming bariatric surgery. She points to the lateral aspect of the left shoulder and upper arm as the area of his discomfort pain is described as sharp exacerbated with activity relieved with rest and free of radiation. No prior problems with the left shoulder. 04/26/18 13:05 Past History - Past Medical History Allergies/Adverse Reactions: Allergies Allergy/AdvReac Type Severity Reaction Status Date / Time naproxen sodium [From Aleve] AdvReac Rash Verified 04/26/18 12:28 LACTOSE Allergy Uncoded 04/26/18 12:28 Home Medications: Ambulatory Orders Aspirin [ASA -] 81 mg PO HS 08/26/14 Olmesartan/Hydrochlorothiazide [Benicar Hct 40-12.5 mg Tablet] 1 each PO DAILY 08/26/14 Nebivolol [Bystolic -] 10 mg PO DAILY 11/08/15 Clopidogrel Bisulfate [Plavix -] 75 mg PO DAILY tablet 11/09/15 Rosuvastatin [Crestor -] 5 mg PO HS tablet 11/09/15 Amlodipine Besylate [Norvasc -] 5 mg PO HS 03/20/18 Cardiac Disorders: Yes COPD: No GI Disorders: Yes (diverticulosis, chronic constipation) HTN: Yes Hypercholesterolemia: Yes - Surgical History Cardiac Surgery: Yes (stent 2014) - Immunization History Immunization Up to Date: Yes - Suicide/Smoking/Psychosocial Hx Smoking Status: Yes Smoking History: Current every day smoker Have you smoked in the past 12 months: No Number of Cigarettes Smoked Daily: 6 If you are a former smoker, when did you quit?: couple of months Information on smoking cessation initiated: No 'Breaking Loose' booklet given: 03/15/15 Hx Alcohol Use: No Drug/Substance Use Hx: No Substance Use Type: None Hx Substance Use Treatment: No Review of Systems - Review of Systems Musculoskeletal: Yes: See HPI, Joint Pain All Other Systems: Reviewed and Negative *Physical Exam - Vital Signs Last Vital Signs Temp Pulse Resp BP Pulse Ox 98.1 F 80 18 145/73 97 04/26/18 12:25 04/26/18 12:25 04/26/18 12:25 04/26/18 12:25 04/26/18 12:49 - Physical Exam Comments: Left shoulder skin color and temperature within normal limits she has full passive internal and external rotation. She is unable to allow me to passively flex her shoulder past 30. She is unable to tolerate impingement maneuvers are stability testing. Her upper extremity compartments are soft and nontender she has no gross sensorimotor deficits. She's neurovascularly intact. 04/26/18 13:06 ED Treatment Course - RADIOLOGY Radiology Studies Ordered: Category Date Time Status SHOULDER-LEFT [RAD] Stat Radiology 04/26/18 12:43 Completed Medical Decision Making - Medical Decision Making Is a left shoulder contusion. She also may have a traumatic rotator cuff tear. She is unable to take anti-inflammatories at this point because of her upcoming surgery. I've advised her to take Tylenol as directed for home analgesia. Follow -up with orthopedics for further evaluation and treatment options. 04/26/18 13:06 *DC/Admit/Observation/Transfer Diagnosis at time of Disposition: Shoulder contusion - Discharge Dispostion Disposition: HOME Condition at time of disposition: Stable Decision to Admit order: No - Referrals Referrals: Ehsan Moran MD [Primary Care Provider] - Bob Kearney MD [Staff Physician] - - Patient Instructions Printed Discharge Instructions: DI for Contusion Additional Instructions: Because of your upcoming surgery you may only take Tylenol for pain. Return to the emergency room should symptoms worsen or go unresolved. Follow-up with orthopedics in 1-2 days for further evaluation and treatment options. Do not take any anti-inflammatories toribio such as Advil Motrin Aleve or Naprosyn no ibuprofen. Do not put your arm in a sling. Although it hurts to move it's important for you to allow to be loose and hanging so you do not get stiff. - Post Discharge Activity
== END 2018-04-26 13:12 | disposition home or self-care (01) ==
LOC: JERFT 12:03
DX: S40.012A Contusion of left shoulder, initial encounter (principal); W18.39XA Other fall on same level, initial encounter; Y93.89 Activity, other specified; Y92.89 Other specified places as the place of occurrence of the external cause; Y99.8 Other external cause status; I25.10 Atherosclerotic heart disease of native coronary artery without angina pectoris; I10 Essential (primary) hypertension; Z95.5 Presence of coronary angioplasty implant and graft; E78.00 Pure hypercholesterolemia, unspecified; Z87.19 Personal history of other diseases of the digestive system; F17.210 Nicotine dependence, cigarettes, uncomplicated
CPT/HCPCS: 73030-TC-LT-FY; 99281-25

== ENCOUNTER 2019-07-09 07:43 | Emergency (ER) | payer OTHER ==
[2019-07-09 08:00] VITALS: PULSE 71; TEMP 97.8; BMI 26.2
[2019-07-09] MEDS ORDERED: MECLIZINE HCL 25 MG TABLET (FP) PO ONE (09:28)
[2019-07-09 09:29] LABS: BASO % 0.5 % (0-2.0); EOS % 0.7 % (0-4.5); HEMATOCRIT 43.8 % (32.4-45.2); HEMOGLOBIN 14.8 GM/dL (10.7-15.3); LYMPH % 26.8 % (8-40); MCH 29.7 pg (25.7-33.7); MCHC 33.8 g/dl (32.0-36.0); MEAN CELL VOLUME 87.9 fl (80-96); MEAN PLT VOLUME 7.9 fl (7.5-11.1); MONO % 4.4 % (3.8-10.2); NEUT % 67.6 % (42.8-82.8); PLATELET COUNT 153 K/MM3 (134-434); RBC 4.98 M/mm3 (3.60-5.2); RDW 13.2 % (11.6-15.6); WHITE BLOOD COUNT 5.8 K/mm3 (4.0-10.0)
[2019-07-09] MEDS ORDERED: MECLIZINE HCL 25 MG TABLET (FP) ONE (09:42)
[2019-07-09 10:02] LABS: ALBUMIN 3.8 g/dl (3.4-5.0); ALK PHOS 79 U/L (45-117); ANION GAP 8 MMOL/L (8-16); BILIRUBIN,TOTAL 0.3 mg/dL (0.2-1); BLOOD UREA NITROGEN 12.9 mg/dL (7-18); CALCIUM 9.2 mg/dL (8.5-10.1); CHLORIDE 108 mmol/L (98-107); CO2 26 mmol/L (21-32); CREATININE 0.5 mg/dL (0.55-1.3); GLUCOSE,RANDOM 91 mg/dL (74-106); POTASSIUM 3.6 mmol/L (3.5-5.1); SGOT/AST 12 U/L (15-37); SGPT/ALT 18 U/L (13-61); SODIUM 142 mmol/L (136-145); TOT PROT 6.7 g/dl (6.4-8.2)
[2019-07-09 10:21] LABS: PH,URINE 6.5 (5.0-8.0); URINE APPEARANCE CLEAR; URINE BILIRUBIN NEGATIVE (NEGATIVE); URINE COLOR YELLOW; URINE GLUCOSE (UA) NEGATIVE (NEGATIVE); URINE KETONE NEGATIVE (NEGATIVE); URINE LEUK ESTERASE NEGATIVE (NEGATIVE); URINE NITRITE NEGATIVE (NEGATIVE); URINE PROTEIN NEGATIVE (NEGATIVE); URINE UROBILINOGEN 0.2 mg/dL (0.2-1.0)
--- NOTE | 2019-07-09 11:21 | PDOC ---
History of Present Illness - General Chief Complaint: Blood Pressure Problem Stated Complaint: HIGH BLOOD PRESSURE Time Seen by Provider: 07/09/19 08:14 History Source: Patient Exam Limitations: No Limitations - History of Present Illness Initial Comments: 07/09/19 09:03 59-year-old female with history of hypertension dyslipidemia, and vertical years ago presents the ED with complaints of dizziness upon awakening this morning causing her now of frontal throbbing for head pressure. Patient states felt as if the room was spinning but denies any visual changes, chest pain, shortness of breath, abdominal pain, or nausea. Patient states took her blood pressure at home which she rarely does and noted to have a BP of 190/90 and so decided come to the ER. Patient states has been taking her medication as prescribed except for her Plavix which she fails to take intermittently. Patient does complain also of sinus pressure without fever or chills but is prescribed Claritin and Flonase by her PCP which she has been using intermittently for the past few weeks Is this a multiple visit Asthma Patient?: No Timing/Duration: intermittent Severity: moderate Associated Symptoms: reports: headaches, other Past History - Travel Traveled outside of the country in the last 30 days: No Close contact w/someone who was outside of country & ill: No - Past Medical History Allergies/Adverse Reactions: Allergies Allergy/AdvReac Type Severity Reaction Status Date / Time naproxen sodium [From Aleve] AdvReac "swelling Verified 07/09/19 07:54 of face" LACTOSE Allergy Uncoded 07/09/19 07:54 Home Medications: Ambulatory Orders Aspirin [ASA -] 81 mg PO HS 08/26/14 Olmesartan/Hydrochlorothiazide [Benicar Hct 40-12.5 mg Tablet] 1 each PO DAILY 08/26/14 Nebivolol [Bystolic -] 10 mg PO DAILY 11/08/15 Rosuvastatin [Crestor -] 5 mg PO HS tablet 11/09/15 Amlodipine Besylate [Norvasc -] 5 mg PO HS 03/20/18 Clopidogrel Bisulfate [Plavix -] 75 mg PO HS 05/26/18 Ergocalciferol (Vitamin D2) [Vitamin D2] 2,000 unit PO DAILY 05/26/18 Ergocalciferol (Vitamin D2) [Vitamin D2] 50,000 unit PO DAILY 05/26/18 Famotidine [Pepcid] 20 mg PO BID #60 tablet 05/27/18 Oxycodone HCl/Acetaminophen [Percocet 5-325 mg Tablet] 1 - 2 tab PO Q6H #28 tab MDD 4 05/27/18 Anemia: No Asthma: No Cancer: No Cardiac Disorders: Yes (stent2014) CVA: No COPD: No CHF: No Dementia: No Diabetes: No GI Disorders: Yes (diverticulosis, chronic constipation) Disorders: No HTN: Yes Hypercholesterolemia: Yes Liver Disease: No Seizures: No Thyroid Disease: No - Surgical History Cardiac Surgery: Yes (stent 2014) Orthopedic Surgery: Yes (reconstructive surgery right wrist 2014) - Immunization History Immunization Up to Date: Yes - Psycho Social/Smoking Cessation Hx Smoking Status: Yes Smoking History: Current every day smoker Have you smoked in the past 12 months: No Number of Cigarettes Smoked Daily: 10 If you are a former smoker, when did you quit?: couple of months Information on smoking cessation initiated: Yes 'Breaking Loose' booklet given: 05/27/18 Hx Alcohol Use: No Drug/Substance Use Hx: No Substance Use Type: Alcohol Hx Substance Use Treatment: No Patient Lives Alone: No Lives with/in: spouse/SO Review of Systems - Review of Systems Able to Perform ROS?: Yes Constitutional: No: Symptoms Reported HEENTM: No: Blurred Vision Respiratory: No: Symptoms reported Cardiac (ROS): Yes: Lightheadedness ABD/GI: No: Symptoms Reported : No: Symptoms Reported Integumentary: No: Symptoms Reported Neurological: Yes: Headache, Dizziness Endocrine: No: Symptoms Reported Hematologic/Lymphatic: No: Symptoms Reported *Physical Exam - Vital Signs Last Vital Signs Temp Pulse Resp BP Pulse Ox 97.8 F 71 18 170/87 99 07/09/19 07:51 07/09/19 07:51 07/09/19 07:51 07/09/19 10:58 07/09/19 07:51 - Physical Exam General Appearance: Yes: Nourished, Appropriately Dressed. No: Apparent Distress HEENT: positive: EOMI, DAVID, TMs Normal, Pharynx Normal. negative: Pale Conjunctivae Neck: positive: Normal Thyroid, Supple. negative: Tender midline Respiratory/Chest: positive: Lungs Clear, Normal Breath Sounds. negative: Respiratory Distress, Accessory Muscle Use Cardiovascular: positive: Regular Rhythm, Regular Rate. negative: Murmur Gastrointestinal/Abdominal: positive: Soft. negative: Tenderness Extremity: positive: Normal Inspection. negative: Pedal Edema Integumentary: positive: Normal Color, Warm, Moist Neurologic: positive: Motor Strength 5/5 (subjective complaints of dizziness when going from supine to sitting position . On exam -negative Hallpike's). negative: Sensory Deficit ED Treatment Course - LABORATORY CBC & Chemistry Diagram: 07/09/19 09:17 07/09/19 09:17 - ADDITIONAL ORDERS Additional order review: Laboratory Results 07/09/19 07/09/19 07/09/19 09:59 09:17 09:17 Sodium 142 Potassium 3.6 Chloride 108 H Carbon Dioxide 26 Anion Gap 8 BUN 12.9 Creatinine 0.5 L Est GFR (CKD-EPI)AfAm 124.52 Est GFR (CKD-EPI)NonAf 107.44 Random Glucose 91 Calcium 9.2 Magnesium 2.1 Total Bilirubin 0.3 AST 12 L ALT 18 Alkaline Phosphatase 79 Creatine Kinase 74 Troponin I < 0.02 Total Protein 6.7 Albumin 3.8 Urine Color Yellow Urine Appearance Clear Urine pH 6.5 Ur Specific [place] 1.003 L Urine Protein Negative Urine Glucose (UA) Negative Urine Ketones Negative Urine Blood Negative Urine Nitrite Negative Urine Bilirubin Negative Urine Urobilinogen 0.2 Ur Leukocyte Esterase Negative 07/09/19 09:17 RBC 4.98 MCV 87.9 MCHC 33.8 RDW 13.2 MPV 7.9 Neutrophils % 67.6 Lymphocytes % 26.8 Monocytes % 4.4 Eosinophils % 0.7 Basophils % 0.5 - RADIOLOGY Radiology Studies Ordered: Category Date Time Status HEAD CT WITHOUT CONTRAST [CT] Stat CT Scan 07/09/19 08:51 Ordered CHEST X-RAY PORTABLE* [RAD] Stat Radiology 07/09/19 08:51 Ordered - Medications Given in the ED: ED Medications Discontinued Medications Generic Name Dose Route Start Last Admin Trade Name Freq PRN Reason Stop Dose Admin Meclizine HCl 25 mg 07/09/19 09:28 07/09/19 09:45 Antivert - PO 07/09/19 09:29 25 mg ONCE ONE Administration Medical Decision Making - Medical Decision Making 07/09/19 09:23 CC: Intermittent dizziness over the past 2 days worsen in the a.m. hours without nausea visual changes but now this a.m. had a frontal headache and had noted to have an elevated blood pressure reading at home of Flonase Dymist and Claritin for sinus complaints Exam:170/80 no neuro focal deficits negative Hallpike's but noted increased dizziness from supine to sitting asking to lay back down due to symptoms Plan labs, urine, chest x-ray, EKG and head CT ordered along with meclizine 07/09/19 10:[address] Moran, patient's PCP who recommended a CT of the head is negative and patient has resolution of symptoms to sent home on meclizine. He attributed her elevated blood pressure to her noncompliance with Plavix. 07/09/19 11:26 Laboratory Tests 07/09/19 07/09/19 07/09/19 09:17 09:17 09:17 WBC 5.8 Hgb 14.8 Hct 43.8 D Neutrophils % 67.6 Sodium 142 Potassium 3.6 Chloride 108 H Carbon Dioxide 26 Anion Gap 8 BUN 12.9 Creatinine 0.5 L Est GFR (CKD-EPI)NonAf 107.44 Random Glucose 91 Calcium 9.2 Magnesium 2.1 Total Bilirubin 0.3 AST 12 L ALT 18 Alkaline Phosphatase 79 Creatine Kinase 74 Troponin I < 0.02 Ur Specific [place] Urine Ketones Urine Blood Urine Bilirubin Ur Leukocyte Esterase 07/09/19 09:59 WBC Hgb Hct Neutrophils % Sodium Potassium Chloride Carbon Dioxide Anion Gap BUN Creatinine Est GFR (CKD-EPI)NonAf Random Glucose Calcium Magnesium Total Bilirubin AST ALT Alkaline Phosphatase Creatine Kinase Troponin I Ur Specific [place] 1.003 L Urine Ketones Negative Urine Blood Negative Urine Bilirubin Negative Ur Leukocyte Esterase Negative Currently in CT and prior to transport stated her symptoms have resolved and able to get up and ambulate without complaints 07/09/19 12:[address] negative for acute intracranial pathology. Patient to be discharged home with meclizine as discussed. Discharge - Discharge Information Problems reviewed: Yes Clinical Impression/Diagnosis: Vertigo Condition: Improved Disposition: HOME - Follow up/Referral Referrals: Ehsan Moran MD [Primary Care Provider] - - Patient Discharge Instructions Patient Printed Discharge Instructions: DI for Vertigo Additional Instructions: Please get up from lying position and increments to avoid dizziness. Next line please take all your medications prescribed by your primary care physician. Take meclizine as prescribed which at this time we are recommending 12.5 mg 3 times a day for one week then twice a day the following week then daily the third week and then every other day the fourth week - Post Discharge Activity
[2019-07-09 12:32] VITALS: BP 167/80
--- NOTE | 2019-07-09 16:20 | EKG ---
Test Reason : Blood Pressure : / mmHG Vent. Rate : 065 BPM Atrial Rate : 065 BPM P-R Int : 166 ms QRS Dur : 078 ms QT Int : 404 ms P-R-T Axes : 053 005 014 degrees QTc Int : 420 ms NORMAL SINUS RHYTHM SEPTAL INFARCT , AGE UNDETERMINED ABNORMAL ECG WHEN COMPARED WITH ECG OF 27-MAY-2018 19:45, NONSPECIFIC T WAVE ABNORMALITY, IMPROVED IN INFERIOR LEADS NONSPECIFIC T WAVE ABNORMALITY NO LONGER EVIDENT IN LATERAL LEADS Confirmed by ANTHONY FAYE MD ([id number]) on 07/09/2019 4:20:08 PM Referred By: Confirmed By:ANTHONY FAYE MD
== END 2019-07-09 12:33 | disposition home or self-care (01) ==
LOC: JER 07:43
DX: R42 Dizziness and giddiness (principal); I25.10 Atherosclerotic heart disease of native coronary artery without angina pectoris; I10 Essential (primary) hypertension; Z95.5 Presence of coronary angioplasty implant and graft; E78.00 Pure hypercholesterolemia, unspecified; K59.09 Other constipation; Z87.19 Personal history of other diseases of the digestive system; Z88.8 Allergy status to other drugs, medicaments and biological substances; Z91.02 Food additives allergy status
CPT/HCPCS: 36415; 70450-TC; 71045-TC-FY; 80053; 81003; 82550; 83735; 84484; 85025; 87086; 93005; 93010; 99283-25

== ENCOUNTER 2019-08-18 08:55 | Emergency (ER) | payer OTHER ==
[2019-08-18 09:03] VITALS: BP 169/79; PULSE 69; TEMP 98.1; BMI 26.2
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
[2019-08-18] MEDS ORDERED: ACETAMINOPHEN 325 MG TABLET (FP) PO ONE (09:58)
[2019-08-18] MEDS ORDERED: METHOCARBAMOL 500 MG TABLET PO ONE (09:58)
[2019-08-18] MEDS ORDERED: METHOCARBAMOL 500 MG TABLET ONE (10:54)
[2019-08-18] MEDS ORDERED: ACETAMINOPHEN 325 MG TABLET (FP) ONE (10:54)
[2019-08-18] MEDS ORDERED: diazePAM 2 MG TABLET PO ONE (10:57)
[2019-08-18] MEDS ORDERED: diazePAM 2 MG TABLET ONE (10:57)
--- NOTE | 2019-08-18 11:26 | EKG ---
Test Reason : Blood Pressure : / mmHG Vent. Rate : 064 BPM Atrial Rate : 064 BPM P-R Int : 162 ms QRS Dur : 080 ms QT Int : 396 ms P-R-T Axes : 051 -02 014 degrees QTc Int : 408 ms NORMAL SINUS RHYTHM NONSPECIFIC T WAVE ABNORMALITY ABNORMAL ECG WHEN COMPARED WITH ECG OF 09-JUL-2019 08:06, NO SIGNIFICANT CHANGE WAS FOUND Confirmed by Danielito Barlow MD ([id number]) on 08/18/2019 11:25:55 AM Referred By: Confirmed By:Danielito Barlow MD
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
== END 2019-08-18 11:57 | disposition home or self-care (01) ==
LOC: JER 08:55
DX: M54.6 Pain in thoracic spine (principal); M25.512 Pain in left shoulder; V49.49XA Driver injured in collision with other motor vehicles in traffic accident, initial encounter; W22.19XA Striking against or struck by other automobile airbag, initial encounter; Y92.414 Local residential or business street as the place of occurrence of the external cause; Y93.89 Activity, other specified; Y99.8 Other external cause status; I25.10 Atherosclerotic heart disease of native coronary artery without angina pectoris; I10 Essential (primary) hypertension; Z95.5 Presence of coronary angioplasty implant and graft; K57.90 Diverticulosis of intestine, part unspecified, without perforation or abscess without bleeding; G47.39 Other sleep apnea; Z98.84 Bariatric surgery status; Z88.8 Allergy status to other drugs, medicaments and biological substances
CPT/HCPCS: 70450-TC; 71045-TC-FY; 73030-TC-LT-FY; 73030-TC-RT-FY; 93005; 93010; 99282-25

== ENCOUNTER 2019-10-20 09:21 | Emergency (ER) | payer OTHER ==
[2019-10-20 09:32] VITALS: BMI 27.2
[2019-10-20] MEDS ORDERED: SODIUM CHLORIDE 0.9% 1000 ML INFUS.BAG IV ONE (10:29)
[2019-10-20] MEDS ORDERED: ONDANSETRON 4 MG/2 ML VIAL IVPUSH ONE (10:29)
[2019-10-20] MEDS ORDERED: ONDANSETRON 4 MG/2 ML VIAL ONE (10:40)
[2019-10-20 10:46] LABS: BASO % 0.8 % (0-2.0); EOS % 1.2 % (0-4.5); HEMATOCRIT 45.5 % (32.4-45.2); HEMOGLOBIN 15.2 GM/dL (10.7-15.3); LYMPH % 31.2 % (8-40); MCH 29.9 pg (25.7-33.7); MCHC 33.3 g/dl (32.0-36.0); MEAN CELL VOLUME 89.8 fl (80-96); MEAN PLT VOLUME 8.1 fl (7.5-11.1); MONO % 5.5 % (3.8-10.2); NEUT % 61.3 % (42.8-82.8); PLATELET COUNT 154 K/MM3 (134-434); RBC 5.07 M/mm3 (3.60-5.2); RDW 12.9 % (11.6-15.6); WHITE BLOOD COUNT 5.7 K/mm3 (4.0-10.0)
[2019-10-20 11:15] LABS: ALBUMIN 3.9 g/dl (3.4-5.0); BILIRUBIN,TOTAL 0.3 mg/dL (0.2-1); CREATININE 0.5 mg/dL (0.55-1.3); POTASSIUM 3.6 mmol/L (3.5-5.1); TOT PROT 6.7 g/dl (6.4-8.2)
[2019-10-20 11:20] LABS: LIPASE 172 U/L (73-393)
--- NOTE | 2019-10-20 11:30 | PDOC ---
Documentation entered by Edd Keen SCRIBE, acting as scribe for Oracio Cheng MD. Oracio Cheng MD: This documentation has been prepared by the [place], SCRIBE, under my direction and personally reviewed by me in its entirety. I confirm that the documentation accurately reflects all work, treatment, procedures, and medical decision making performed by me. Attending Attestation - Resident Resident Name: Tyler Mauro - ED Attending Attestation I have performed the following: I have examined & evaluated the patient, The case was reviewed & discussed with the resident, I agree w/resident's findings & plan, Exceptions are as noted - HPI HPI: 10/20/19 11:30 59 F with h/o obesity (s/p laparoscopic vertical sleeve gastrectomy, HTN, CAD (s /p cardiac stent), sleep apnea, chronic constipation, diverticulosis, and IBD, presenting to ED with 1 day of malaise, nausea, and chills. Pt states that she awoke this morning and felt her body shivering. She endorses nausea without vomiting. Denies fevers. Endorsers generalized malaise and weakness. Denies CP/ SOB. Denies abdominal pain/diarrhea. No known sick contacts. - Physicial Exam PE: 10/20/19 11:31 GENERAL: Awake, alert, and fully oriented, in no acute distress. HEAD: No signs of trauma EYES: PERRLA, EOMI, sclera anicteric, conjunctiva clear ENT: Auricles normal inspection, hearing grossly normal, nares patent, oropharynx clear without exudates. Moist mucosa NECK: Nontender, no stepoffs, Normal ROM, supple, no lymphadenopathy, JVD, or masses LUNGS: Breath sounds equal, clear to auscultation bilaterally. No wheezes, and no crackles HEART: Regular rate and rhythm, normal S1 and S2, no murmurs, rubs or gallops ABDOMEN: Soft, nontender, normoactive bowel sounds. No guarding, no rebound. No masses EXTREMITIES: Normal range of motion, no edema. No clubbing or cyanosis. No cords, erythema, or tenderness NEUROLOGICAL: Cranial nerves II through XII intact. 5/5 strength and sensation in all extremities, Normal speech, normal gait, normal cerebellar function SKIN: Warm, Dry, normal turgor, no rashes or lesions noted. - Medical Decision Making 10/20/19 11:31 59 F with malaise, chills, and nausea. Likely viral illness. Pt with h/o CAD but EKG wnl. - Labs, trop - CXR - Flu swab 10/20/19 11:32 Labs wnl CXR clear on my read Flu swab negative Pt feels better after 1L NS Pt is well appearing, with normal vitals. Clinically stable for DC at this time. I discussed the physical exam findings, ancillary test results and final diagnoses with the patient. I answered all of the patient's questions. The patient was satisfied with the care received and felt comfortable with the discharge plan and treatment plan. The patient agrees to follow up with the primary care physician within 24-72 hours.
--- NOTE | 2019-10-20 11:33 | PDOC ---
History of Present Illness - General Chief Complaint: Nausea Stated Complaint: WEAKNESS/NAUSEA Time Seen by Provider: 10/20/19 10:06 History Source: Patient Exam Limitations: No Limitations - History of Present Illness Initial Comments: 10/20/19 11:32 59F with a PMH of HTN and CAD s/p stent on asa and plavix who presents to the ER for 5 hour onset of chills and nausea w/ weakness. The patient states that she woke up this morning with chills and nausea, without vomiting, CP, diarrhea , abd pain, SOB, fever, cough. She admits to "some" congestion w/o sore throat. She states that she felt weak and unable to walk and could not take any of her morning medications. Denies recent travel or sick contacts. Past History - Past Medical History Allergies/Adverse Reactions: Allergies Allergy/AdvReac Type Severity Reaction Status Date / Time naproxen sodium [From Aleve] AdvReac "swelling Verified 10/20/19 09:28 of face" LACTOSE Allergy Uncoded 10/20/19 09:28 Home Medications: Ambulatory Orders Aspirin [ASA -] 81 mg PO HS 08/26/14 Olmesartan/Hydrochlorothiazide [Benicar Hct 40-12.5 mg Tablet] 1 each PO DAILY 08/26/14 Nebivolol [Bystolic -] 10 mg PO DAILY 11/08/15 Rosuvastatin [Crestor -] 5 mg PO HS tablet 11/09/15 Clopidogrel Bisulfate [Plavix -] 75 mg PO HS 05/26/18 Ergocalciferol (Vitamin D2) [Vitamin D2] 50,000 unit PO WEEKLY 05/26/18 Famotidine [Pepcid] 20 mg PO BID #60 tablet 05/27/18 Meclizine HCl [Antivert -] 12.5 mg PO TID PRN 08/18/19 Carisoprodol 350 mg PO HS 10/20/19 Lidocaine 1 patch TD ASDIR 10/20/19 Scopolamine 1 patch TD ASDIR 10/20/19 Anemia: No Asthma: No Cancer: No Cardiac Disorders: Yes (stent 2014) CVA: No COPD: No CHF: No Dementia: No Diabetes: No GI Disorders: Yes (diverticulosis, chronic constipation) Disorders: No HTN: Yes Hypercholesterolemia: Yes Liver Disease: No Seizures: No Thyroid Disease: No - Surgical History Cardiac Surgery: Yes (stent 2014) Orthopedic Surgery: Yes (reconstructive surgery right wrist 2014) - Immunization History Immunization Up to Date: Yes - Psycho Social/Smoking Cessation Hx Smoking Status: Yes Smoking History: Unknown if ever smoked Have you smoked in the past 12 months: No Number of Cigarettes Smoked Daily: 7 If you are a former smoker, when did you quit?: couple of months 'Breaking Loose' booklet given: 05/27/18 Hx Alcohol Use: Yes (socially) Drug/Substance Use Hx: No Substance Use Type: Alcohol Hx Substance Use Treatment: No Review of Systems - Review of Systems Able to Perform ROS?: Yes Comments:: 10/20/19 11:37 GENERAL/CONSTITUTIONAL: + for chills. No fever. No weakness. HEAD, EYES, EARS, NOSE AND THROAT: No change in vision. No ear pain or discharge. No sore throat. CARDIOVASCULAR: No chest pain, palpitations, or lightheadedness. RESPIRATORY: No cough, wheezing, shortness of breath, or hemoptysis. GASTROINTESTINAL: + for nausea. No abdominal pain, vomiting, diarrhea, or constipation. GENITOURINARY: No dysuria, frequency, hematuria, or change in urination. MUSCULOSKELETAL: No joint or muscle swelling or pain. No neck or back pain. SKIN: No rash or lesions. NEUROLOGIC: No headache, numbness, tingling, focal weakness, loss of consciousness, or change in strength/sensation. Is the patient limited Khmer proficient: No *Physical Exam - Vital Signs Last Vital Signs Temp Pulse Resp BP Pulse Ox 97.8 F 89 18 151/89 99 10/20/19 09:31 10/20/19 09:31 10/20/19 09:31 10/20/19 09:31 10/20/19 09:31 - Physical Exam 10/20/19 11:37 GENERAL: Well developed, well nourished. Awake and alert. No acute distress. HEENT: Normocephalic, atraumatic. Hearing grossly normal. Moist mucous membranes. PERRLA, EOMI. No conjunctival pallor. Sclera are non-icteric. NECK: Supple. Full ROM. No JVD. CARDIOVASCULAR: Regular rate and rhythm. No murmurs, rubs, or gallops. PULMONARY: No evidence of respiratory distress. Lungs clear to auscultation bilaterally. No wheezing, rales or rhonchi. ABDOMINAL: Soft. Non-tender. Non-distended. No rebound or guarding. GENITOURINARY: No CVA tenderness bilaterally. MUSCULOSKELETAL: Normal range of motion at all joints. No bony deformities or tenderness. EXTREMITIES: No cyanosis. No clubbing. No edema. No calf tenderness or swelling. SKIN: Warm and dry. Normal capillary refill. No rashes. No jaundice. NEUROLOGICAL: Alert, awake, appropriate. Cranial nerves 2-12 grossly intact. No deficits to light touch and temperature in lower extremities. 5/5 strength in quadriceps, hamstrings, and gastrocnemius. Normal speech. Gait is normal without ataxia. PSYCHIATRIC: Cooperative. Good eye contact. Appropriate mood and affect. ED Treatment Course - LABORATORY CBC & Chemistry Diagram: 10/20/19 10:20 10/20/19 10:20 - ADDITIONAL ORDERS Additional order review: Laboratory Results 10/20/19 10/20/19 10:20 10:20 Sodium 140 Potassium 3.6 Chloride 107 Carbon Dioxide 26 Anion Gap 7 L BUN 15.0 Creatinine 0.5 L Est GFR (CKD-EPI)AfAm 124.52 Est GFR (CKD-EPI)NonAf 107.44 Random Glucose 87 Calcium 9.0 Total Bilirubin 0.3 AST 18 ALT 20 Alkaline Phosphatase 74 Creatine Kinase 96 Troponin I < 0.02 Total Protein 6.7 Albumin 3.9 Lipase 172 10/20/19 10:20 RBC 5.07 MCV 89.8 MCHC 33.3 RDW 12.9 MPV 8.1 Neutrophils % 61.3 Lymphocytes % 31.2 Monocytes % 5.5 Eosinophils % 1.2 Basophils % 0.8 - RADIOLOGY Radiology Studies Ordered: Category Date Time Status CHEST PA & LAT [RAD] Stat Radiology 10/20/19 10:18 Taken - Medications Given in the ED: ED Medications Discontinued Medications Generic Name Dose Route Start Last Admin Trade Name Freq PRN Reason Stop Dose Admin Ondansetron HCl 4 mg 10/20/19 10:29 10/20/19 11:00 Zofran Injection IVPUSH 10/20/19 10:30 4 mg ONCE ONE Administration Sodium Chloride 1,000 ml 10/20/19 10:29 10/20/19 11:00 Normal Saline - IV 10/20/19 10:30 1,000 ml ONCE ONE Administration Medical Decision Making - Medical Decision Making 10/20/19 11:38 59F with a PMH of CAD and HTN who presents with nausea and chills. Labs including troponin negative. CXR and EKG WNL. Will d/c with PCP f/u. Pt feels better on reassessment. Discharge - Discharge Information Problems reviewed: Yes Clinical Impression/Diagnosis: Nausea alone Condition: Good Disposition: HOME - Admission No - Follow up/Referral Referrals: Ehsan Moran MD [Primary Care Provider] - - Patient Discharge Instructions Patient Printed Discharge Instructions: DI for Nausea -- Adult Additional Instructions: Your ER visit is not complete until your follow up with your primary care physician. Please follow up with your primary care physician in 1-2 days. Please return to the ER if you have any signs or symptoms of chest pain, shortness of breath, uncontrollable fever, chills, nausea, vomiting, numbness, tingling, or weakness in any part of your body, changes in vision, or slurred speech. Please return to the ER if symptoms persist, worsen, or new symptoms arise. - Post Discharge Activity
[2019-10-20 11:42] VITALS: BP 117/71; PULSE 52; TEMP 97.7
--- NOTE | 2019-10-20 12:56 | EKG ---
Test Reason : Blood Pressure : / mmHG Vent. Rate : 055 BPM Atrial Rate : 055 BPM P-R Int : 178 ms QRS Dur : 082 ms QT Int : 436 ms P-R-T Axes : 054 019 017 degrees QTc Int : 417 ms SINUS BRADYCARDIA NONSPECIFIC T WAVE ABNORMALITY ABNORMAL ECG WHEN COMPARED WITH ECG OF 18-AUG-2019 09:58, NO SIGNIFICANT CHANGE WAS FOUND Confirmed by MD Lerma Daniel ([id number]) on 10/20/2019 12:56:15 PM Referred By: Confirmed By:Edd Lerma MD
== END 2019-10-20 12:14 | disposition home or self-care (01) ==
LOC: JER 09:21
PROC: 3E033GC Introduction of Other Therapeutic Substance into Peripheral Vein, Percutaneous Approach (ICD-10-PCS; principal; 2019-10-20)
DX: R11.0 Nausea (principal); I25.10 Atherosclerotic heart disease of native coronary artery without angina pectoris; I10 Essential (primary) hypertension; Z95.5 Presence of coronary angioplasty implant and graft; Z79.01 Long term (current) use of anticoagulants; Z79.82 Long term (current) use of aspirin; Z88.8 Allergy status to other drugs, medicaments and biological substances; E78.00 Pure hypercholesterolemia, unspecified; K59.09 Other constipation
CPT/HCPCS: 36415; 71046-TC-FY; 80053; 82550; 83690; 84484; 85025; 87804; 93005; 93010; 99283-25; J7030

== ENCOUNTER 2021-04-08 16:10 | Inpatient (IN) | payer OTHER ==
[2021-04-08] MEDS ORDERED: ACETAMINOPHEN 1000 MG/100 ML VIAL (NON FORMULARY) IVPB ONE (16:57)
[2021-04-08] MEDS ORDERED: ACETAMINOPHEN INJECTION 100 ML IVPB ONE (17:44)
[2021-04-08 18:12] LABS: BASO % 0.7 % (0-2.0); EOS % 0.1 % (0-4.5); HEMATOCRIT 43.9 % (32.4-45.2); HEMOGLOBIN 14.9 GM/dL (10.7-15.3); LYMPH % 10.7 % (8-40); MCH 29.7 pg (25.7-33.7); MCHC 33.9 g/dl (32.0-36.0); MEAN CELL VOLUME 87.6 fl (80-96); MEAN PLT VOLUME 8.1 fl (7.5-11.1); MONO % 3.7 % (3.8-10.2); NEUT % 84.8 % (42.8-82.8); PLATELET COUNT 157 10^3/uL (134-434); RBC 5.01 M/mm3 (3.60-5.2); RDW 13.1 % (11.6-15.6); WHITE BLOOD COUNT 12.7 K/mm3 (4.0-10.0)
[2021-04-08 18:13] LABS: URINE APPEARANCE CLEAR; URINE BILIRUBIN NEGATIVE (NEGATIVE); URINE COLOR YELLOW; URINE GLUCOSE (UA) NEGATIVE (NEGATIVE); URINE KETONE NEGATIVE (NEGATIVE); URINE LEUK ESTERASE NEGATIVE (NEGATIVE); URINE NITRITE NEGATIVE (NEGATIVE); URINE PROTEIN NEGATIVE (NEGATIVE); URINE UROBILINOGEN 0.2 mg/dL (0.2-1.0)
[2021-04-08 18:22] LABS: INR 1.08 (0.83-1.09)
[2021-04-08 18:25] LABS: ACTIVATED PTT 33.3 SECONDS (25.2-36.5)
[2021-04-08 18:35] LABS: CHLORIDE 102 mmol/L (98-107); SODIUM 138 mmol/L (136-145)
[2021-04-08 18:38] LABS: CALCIUM 9.7 mg/dL (8.5-10.1)
[2021-04-08 18:39] LABS: ALBUMIN 4.1 g/dl (3.4-5.0); ANION GAP 10 MMOL/L (8-16); BLOOD UREA NITROGEN 12.3 mg/dL (7-18); CO2 27 mmol/L (21-32); LIPASE 148 U/L (73-393); MAGNESIUM 1.9 mg/dL (1.8-2.4)
[2021-04-08 18:42] LABS: CREATININE 0.6 mg/dL (0.55-1.3); SGPT/ALT 23 U/L (13-61)
[2021-04-08 18:43] LABS: BILIRUBIN,TOTAL 0.4 mg/dL (0.2-1); TOT PROT 7.1 g/dl (6.4-8.2)
[2021-04-08 18:44] LABS: ALK PHOS 86 U/L (45-117)
[2021-04-08 18:52] LABS: SGOT/AST 16 U/L (15-37)
[2021-04-08 19:02] LABS: GLUCOSE,RANDOM 92 mg/dL (74-106)
[2021-04-08] MEDS ORDERED: MAG HYDROX/AL HYDROX/SIMETH 30 ML UNIT-DOSE CUP PO ONE (19:04)
[2021-04-08] MEDS ORDERED: SODIUM CHLORIDE 1,000 ML IV STA (19:04)
[2021-04-08] MEDS ORDERED: FAMOTIDINE 20 MG/50 ML IVPB 20 MG/50 ML MG IVPB ONE ×2 (19:04→19:45)
[2021-04-08] MEDS ORDERED: MAG HYDROX/AL HYDROX/SIMETH 30 ML UNIT-DOSE CUP ONE (19:44)
[2021-04-08] MEDS ORDERED: PIPERACILLIN/TAZOB 4.5 GM 4.5 GM in DEXTROSE 5%-WATER 100 ML IVPB ONE (20:25)
[2021-04-08] MEDS ORDERED: PIPERACILLIN/TAZOB 4.5 GM 4.5 GM/100 ML BAG IVPB ONE (21:33)
[2021-04-09] MEDS: LACTATED RINGERS SOLUTION 1,000 ML/1,000 ML INFUS.BAG IV SCH ×2 (01:16→14:11)
[2021-04-09 02:22] VITALS: BMI 30.7
[2021-04-09] MEDS ORDERED: PIPERACILLIN/TAZOBACTAM 3.375 GM VIAL IVPB ONE ×3 (03:38→16:52)
[2021-04-09] MEDS ORDERED: DEXTROSE 5%-WATER - 50 ML IVPB ONE ×3 (03:39→16:52)
[2021-04-09] MEDS: PIPERACILLIN/TAZOB 3.375 GM 3.375 GM in DEXTROSE 5%-WATER - 50 ML IVPB SCH ×3 (03:42→17:00)
[2021-04-09] MEDS ORDERED: FAMOTIDINE 20 MG TABLET PO PRN (03:58)
[2021-04-09] MEDS ORDERED: MECLIZINE HCL 12.5 MG TABLET PO PRN (03:58)
[2021-04-09] MEDS ORDERED: ACETAMINOPHEN 325 MG TABLET (FP) PO ONE (06:44)
[2021-04-09] MEDS ORDERED: PT OWN MED DRAWER 7, Y5N ONE (08:46)
[2021-04-09] MEDS: NEBIVOLOL 5 MG TABLET (FP) PO SCH (08:59)
[2021-04-09] MEDS: CHOLECALCIFEROL (VIT D3) 1,000 UNIT (25 MCG) TABLET PO SCH (08:59)
[2021-04-09] MEDS: LOSARTAN 50MG/HCTZ 12.5MG 1 TAB PO SCH (08:59)
[2021-04-09] MEDS ORDERED: PATIENT'S OWN MEDICATION (NON-FORMULARY) (Olmesartan/Hydrochlorothiazide [Benicar Hct 40-2 PO SCH (10:00)
[2021-04-09 10:03] LABS: BASO % 0.5 % (0-2.0); EOS % 0.3 % (0-4.5); HEMATOCRIT 39.3 % (32.4-45.2); HEMOGLOBIN 13.2 GM/dL (10.7-15.3); LYMPH % 11.5 % (8-40); MCH 29.6 pg (25.7-33.7); MCHC 33.7 g/dl (32.0-36.0); MEAN CELL VOLUME 87.8 fl (80-96); MEAN PLT VOLUME 8.2 fl (7.5-11.1); MONO % 4.8 % (3.8-10.2); NEUT % 82.9 % (42.8-82.8); PLATELET COUNT 126 10^3/uL (134-434); RBC 4.47 M/mm3 (3.60-5.2); RDW 13.4 % (11.6-15.6); WHITE BLOOD COUNT 7.9 K/mm3 (4.0-10.0)
[2021-04-09 10:24] LABS: ALBUMIN 3.2 g/dl (3.4-5.0); BLOOD UREA NITROGEN 11.4 mg/dL (7-18); CALCIUM 8.6 mg/dL (8.5-10.1); CREATININE 0.4 mg/dL (0.55-1.3); TOT PROT 5.8 g/dl (6.4-8.2)
[2021-04-09] MEDS ORDERED: ACETAMINOPHEN 1000 MG/100 ML VIAL (NON FORMULARY) IVPB PRN (14:31)
[2021-04-09] MEDS ORDERED: ROSUVASTATIN CA 5 MG TABLET (FP) PO SCH (22:00)
[2021-04-10] MEDS ORDERED: PIPERACILLIN/TAZOBACTAM 3.375 GM VIAL IVPB ONE ×3 (01:07→19:11)
[2021-04-10] MEDS ORDERED: DEXTROSE 5%-WATER - 50 ML IVPB ONE ×3 (01:07→19:11)
[2021-04-10] MEDS: PIPERACILLIN/TAZOB 3.375 GM 3.375 GM in DEXTROSE 5%-WATER - 50 ML IVPB SCH ×3 (01:13→19:17)
[2021-04-10] MEDS ORDERED: PIPERACILLIN/TAZOB 3.375 GM 3.375 GM in DEXTROSE 5%-WATER - 50 ML IVPB SCH (03:00)
[2021-04-10 08:11] LABS: HEMATOCRIT 37.4 % (32.4-45.2); HEMOGLOBIN 12.6 GM/dL (10.7-15.3); MCH 29.7 pg (25.7-33.7); MCHC 33.7 g/dl (32.0-36.0); MEAN CELL VOLUME 88.1 fl (80-96); PLATELET COUNT 127 10^3/uL (134-434); RBC 4.24 M/mm3 (3.60-5.2); RDW 13.4 % (11.6-15.6); WHITE BLOOD COUNT 4.8 K/mm3 (4.0-10.0)
[2021-04-10 08:39] LABS: CALCIUM 8.5 mg/dL (8.5-10.1)
[2021-04-10 08:40] LABS: ALBUMIN 3.1 g/dl (3.4-5.0); BLOOD UREA NITROGEN 7.4 mg/dL (7-18)
[2021-04-10 08:43] LABS: CREATININE 0.4 mg/dL (0.55-1.3)
[2021-04-10 08:45] LABS: BILIRUBIN,TOTAL 0.6 mg/dL (0.2-1); TOT PROT 5.7 g/dl (6.4-8.2)
[2021-04-10] MEDS ORDERED: PT OWN MED DRAWER 7, Y5N ONE (09:32)
[2021-04-10] MEDS: NEBIVOLOL 5 MG TABLET (FP) PO SCH (09:40)
[2021-04-10] MEDS: LOSARTAN 50MG/HCTZ 12.5MG 1 TAB PO SCH (09:41)
[2021-04-10] MEDS: CHOLECALCIFEROL (VIT D3) 1,000 UNIT (25 MCG) TABLET PO SCH (09:41)
[2021-04-10] MEDS ORDERED: BUPIVACAINE HCL 100 ML ONE (13:29)
[2021-04-10] MEDS ORDERED: ROCURONIUM BROMIDE 50 MG/5 ML SYRINGE ONE (15:09)
[2021-04-10] MEDS ORDERED: PROPOFOL 20 ML ONE (15:09)
[2021-04-10] MEDS ORDERED: MIDAZOLAM HCL 2 MG/2 ML SINGLE DOSE VIAL ONE (15:09)
[2021-04-10] MEDS ORDERED: BUPIVACAINE HCL/PF 0.5% (5 MG/ML) 30 ML VIAL IJ ONE (16:23)
[2021-04-10] MEDS ORDERED: HYDROmorphone HCl 2 MG/ML VIAL IVPB PRN (17:20)
[2021-04-10] MEDS ORDERED: FAMOTIDINE 20 MG TABLET PO PRN (17:41)
[2021-04-10] MEDS ORDERED: LACTATED RINGERS SOLUTION 1,000 ML/1,000 ML INFUS.BAG IV SCH (17:41)
[2021-04-10] MEDS ORDERED: MECLIZINE HCL 12.5 MG TABLET PO PRN (17:41)
[2021-04-10] MEDS ORDERED: ONDANSETRON 4 MG/2 ML VIAL IVPUSH PRN (17:52)
[2021-04-10] MEDS ORDERED: ACETAMINOPHEN 325 MG TABLET (FP) PO PRN (18:15)
[2021-04-10] MEDS ORDERED: oxyCODONE HCL 5 MG TABLET PO PRN (18:15)
[2021-04-10] MEDS ORDERED: ONDANSETRON 4 MG/2 ML VIAL ONE (18:22)
[2021-04-10] MEDS ORDERED: ROSUVASTATIN CA 5 MG TABLET (FP) PO SCH (22:00)
[2021-04-11] MEDS ORDERED: DEXTROSE 5%-WATER - 50 ML IVPB ONE ×2 (01:32→08:34)
[2021-04-11] MEDS ORDERED: PIPERACILLIN/TAZOBACTAM 3.375 GM VIAL IVPB ONE ×2 (01:32→08:34)
[2021-04-11] MEDS: PIPERACILLIN/TAZOB 3.375 GM 3.375 GM in DEXTROSE 5%-WATER - 50 ML IVPB SCH ×2 (02:26→09:58)
[2021-04-11 06:28] VITALS: TEMP 98.8
[2021-04-11] MEDS ORDERED: SIMETHICONE 80 MG TAB.CHEW (FP) PO PRN (09:00)
[2021-04-11 09:25] VITALS: BP 125/63; PULSE 67
[2021-04-11] MEDS ORDERED: CHOLECALCIFEROL (VIT D3) 1,000 UNIT (25 MCG) TABLET PO SCH (10:00)
[2021-04-11] MEDS ORDERED: NEBIVOLOL 5 MG TABLET (FP) PO SCH (10:00)
[2021-04-11] MEDS ORDERED: LOSARTAN 50MG/HCTZ 12.5MG 1 TAB PO SCH (10:00)
[2021-04-15] MEDS ORDERED: ERGOCALCIFEROL (VIT D2) 50,000 UNIT (1.25 MG) CAPSULE PO SCH ×2 (10:00)
== END 2021-04-11 13:02 | disposition home or self-care (01) | DRG 419 ==
LOC: JER 16:10 → JERBED 20:31 → J8W 04-09 00:23 → J4W 04-10 20:21
PROVIDERS: ADMIT Hospitalist; ATTEND Family Medicine
PROC: 0FT44ZZ Resection of Gallbladder, Percutaneous Endoscopic Approach (ICD-10-PCS; principal; 2021-04-10 15:00)
DX: K81.0 Acute cholecystitis (principal); E78.5 Hyperlipidemia, unspecified; I10 Essential (primary) hypertension; R10.9 Unspecified abdominal pain; Z95.5 Presence of coronary angioplasty implant and graft; Z87.891 Personal history of nicotine dependence
CPT/HCPCS: 36415; 36430; 71045-TC-FY; 76705-TC; 80053; 81003; 82550; 83690; 83735; 84484; 85025; 85027; 85610; 85730; 86850; 86900; 86901; 87086; 88304-TC; 93005; 93010; 94760; 99285-25; C9803; J0131; P9034; U0003; U0005

== ENCOUNTER 2021-04-15 01:17 | Emergency (ER) | payer OTHER ==
[2021-04-15 01:37] VITALS: BMI 29.5
[2021-04-15] MEDS ORDERED: SODIUM CHLORIDE 0.9% 500 ML INFUS.BAG IV ONE (02:10)
[2021-04-15 02:58] LABS: INR 1.09 (0.83-1.09); PROTHROMBIN TIME (PATIENT) 13.1 SEC (9.7-13.0)
[2021-04-15 03:04] LABS: URINE APPEARANCE CLEAR; URINE BILIRUBIN NEGATIVE (NEGATIVE); URINE COLOR YELLOW; URINE GLUCOSE (UA) NEGATIVE (NEGATIVE); URINE KETONE NEGATIVE (NEGATIVE); URINE LEUK ESTERASE NEGATIVE (NEGATIVE); URINE NITRITE NEGATIVE (NEGATIVE); URINE PROTEIN NEGATIVE (NEGATIVE); URINE UROBILINOGEN 0.2 mg/dL (0.2-1.0)
[2021-04-15 03:08] LABS: CHLORIDE 107 mmol/L (98-107); SODIUM 142 mmol/L (136-145)
[2021-04-15] MEDS ORDERED: ACETAMINOPHEN 1000 MG/100 ML VIAL (NON FORMULARY) IVPB ONE (03:09)
[2021-04-15 03:11] LABS: ALBUMIN 3.4 g/dl (3.4-5.0); ANION GAP 8 MMOL/L (8-16); BLOOD UREA NITROGEN 7.4 mg/dL (7-18); CALCIUM 8.6 mg/dL (8.5-10.1); CO2 27 mmol/L (21-32); GLUCOSE,RANDOM 96 mg/dL (74-106); LIPASE 176 U/L (73-393); MAGNESIUM 1.9 mg/dL (1.8-2.4)
[2021-04-15] MEDS ORDERED: ACETAMINOPHEN INJECTION 100 ML IVPB ONE (03:13)
[2021-04-15 03:14] LABS: CREATININE 0.4 mg/dL (0.55-1.3); PHOSPHOROUS 3.1 mg/dL (2.5-4.9); SGOT/AST 120 U/L (15-37); SGPT/ALT 71 U/L (13-61)
[2021-04-15 03:15] LABS: BILIRUBIN,TOTAL 0.6 mg/dL (0.2-1)
[2021-04-15 03:16] LABS: TOT PROT 6.3 g/dl (6.4-8.2)
[2021-04-15] MEDS ORDERED: POTASSIUM CHLORIDE TABS 20 MEQ TABLET.ER (FP) PO ONE ×2 (03:39→03:46)
[2021-04-15] MEDS ORDERED: MAGNESIUM SULF 50% (8.12 MEQ/2 ML-1 GM VIAL) IVPB ONE (03:39)
[2021-04-15] MEDS ORDERED: MAGNESIUM SULFATE IN WATER 2 GM/50 ML IVPB IVPB ONE (03:47)
[2021-04-15 04:37] LABS: BASO % 0.5 % (0-2.0); EOS % 1.6 % (0-4.5); HEMATOCRIT 37.8 % (32.4-45.2); HEMOGLOBIN 12.8 GM/dL (10.7-15.3); LYMPH % 22.6 % (8-40); MCH 29.8 pg (25.7-33.7); MCHC 33.9 g/dl (32.0-36.0); MEAN CELL VOLUME 87.7 fl (80-96); MEAN PLT VOLUME 7.8 fl (7.5-11.1); MONO % 4.7 % (3.8-10.2); NEUT % 70.6 % (42.8-82.8); PLATELET COUNT 169 10^3/uL (134-434); RBC 4.31 M/mm3 (3.60-5.2); RDW 12.9 % (11.6-15.6); WHITE BLOOD COUNT 7.1 K/mm3 (4.0-10.0)
[2021-04-15 04:49] LABS: ALK PHOS 136 U/L (45-117)
[2021-04-15 12:33] LABS: CALCIUM 8.6 mg/dL (8.5-10.1)
[2021-04-15 12:34] LABS: ALBUMIN 3.3 g/dl (3.4-5.0); BLOOD UREA NITROGEN 5.1 mg/dL (7-18)
[2021-04-15 12:37] LABS: CREATININE 0.3 mg/dL (0.55-1.3)
[2021-04-15 12:39] LABS: BILIRUBIN,TOTAL 0.4 mg/dL (0.2-1)
[2021-04-15 13:30] VITALS: PULSE 64
[2021-04-15] MEDS ORDERED: NEBIVOLOL 5 MG TABLET (FP) PO ONE (14:00)
[2021-04-15] MEDS ORDERED: LOSARTAN POTASSIUM 50 MG TABLET PO SCH (14:15)
[2021-04-15] MEDS ORDERED: HYDROCHLOROTHIAZIDE 12.5 MG CAPSULE (FP) PO SCH (14:15)
[2021-04-15 17:56] VITALS: BP 167/72; TEMP 98.2
[2021-04-16] MEDS ORDERED: HYDROCHLOROTHIAZIDE 12.5 MG CAPSULE (FP) PO SCH (10:00)
[2021-04-16] MEDS ORDERED: LOSARTAN POTASSIUM 50 MG TABLET PO SCH (10:00)
== END 2021-04-15 18:09 | disposition short-term general hospital (02) ==
LOC: JER 01:17
PROC: 3E0333Z Introduction of Anti-inflammatory into Peripheral Vein, Percutaneous Approach (ICD-10-PCS; principal; 2021-04-15)
PROC: 3E033GC Introduction of Other Therapeutic Substance into Peripheral Vein, Percutaneous Approach (ICD-10-PCS; 2021-04-15)
DX: R74.01 Elevation of levels of liver transaminase levels (principal); Z90.49 Acquired absence of other specified parts of digestive tract
CPT/HCPCS: 36415; 71045-TC-FY; 74177-TC; 76705-TC; 80053; 81003; 82248; 82550; 83605; 83690; 83735; 84100; 84484; 85025; 85610; 87086; 93005; 93010; 99285-25; C9803; J0131; Q9967; U0003; U0005

== ENCOUNTER 2021-07-29 18:59 | Emergency (ER) | payer OTHER ==
[2021-07-29 19:19] VITALS: PULSE 84; TEMP 97.8; BMI 23.6
[2021-07-29] MEDS ORDERED: FAMOTIDINE 20 MG/50 ML IVPB 20 MG/50 ML MG IVPB ONE ×2 (19:50→19:55)
[2021-07-29] MEDS ORDERED: ONDANSETRON 4 MG/2 ML VIAL IVPUSH ONE (19:51)
[2021-07-29] MEDS ORDERED: SODIUM CHLORIDE 1,000 ML IV STA (19:51)
[2021-07-29] MEDS ORDERED: ONDANSETRON 4 MG/2 ML VIAL ONE (19:54)
[2021-07-29 20:21] LABS: BASO % 0.4 % (0-2.0); EOS % 0.3 % (0-4.5); HEMATOCRIT 48.6 % (32.4-45.2); LYMPH % 9.7 % (8-40); MCHC 32.9 g/dl (32.0-36.0); MEAN CELL VOLUME 88.3 fl (80-96); MEAN PLT VOLUME 7.9 fl (7.5-11.1); NEUT % 85.6 % (42.8-82.8); PLATELET COUNT 189 10^3/uL (134-434); RBC 5.51 M/mm3 (3.60-5.2); RDW 13.6 % (11.6-15.6)
[2021-07-29 20:47] LABS: CHLORIDE 106 mmol/L (98-107); SODIUM 142 mmol/L (136-145)
[2021-07-29 20:49] LABS: ALBUMIN 4.2 g/dl (3.4-5.0); ANION GAP 12 MMOL/L (8-16); BLOOD UREA NITROGEN 18.7 mg/dL (7-18); CALCIUM 9.3 mg/dL (8.5-10.1); CO2 25 mmol/L (21-32); GLUCOSE,RANDOM 125 mg/dL (74-106)
[2021-07-29 20:52] LABS: SGPT/ALT 29 U/L (13-61)
[2021-07-29 20:53] LABS: BILIRUBIN,TOTAL 0.3 mg/dL (0.2-1); CREATININE 0.8 mg/dL (0.55-1.3); SGOT/AST 27 U/L (15-37); TOT PROT 7.4 g/dl (6.4-8.2)
[2021-07-29 20:55] LABS: ALK PHOS 107 U/L (45-117)
[2021-07-29 21:31] VITALS: BP 118/69
== END 2021-07-29 21:33 | disposition home or self-care (01) ==
LOC: JER 18:59
PROC: 3E033GC Introduction of Other Therapeutic Substance into Peripheral Vein, Percutaneous Approach (ICD-10-PCS; principal; 2021-07-29)
PROC: 3E033GC Introduction of Other Therapeutic Substance into Peripheral Vein, Percutaneous Approach (ICD-10-PCS; 2021-07-29)
PROC: 3E0337Z Introduction of Electrolytic and Water Balance Substance into Peripheral Vein, Percutaneous Approach (ICD-10-PCS; 2021-07-29)
DX: T62.91XA Toxic effect of unspecified noxious substance eaten as food, accidental (unintentional), initial encounter (principal); A09 Infectious gastroenteritis and colitis, unspecified
CPT/HCPCS: 36415; 80053; 82550; 84484; 85025; 93005; 93010; 99284-25

== ENCOUNTER 2021-12-26 11:09 | Emergency (ER) | payer OTHER ==
[2021-12-26 11:18] VITALS: BMI 27.7
[2021-12-26] MEDS ORDERED: ACETAMINOPHEN 1000 MG/100 ML BAG IVPB ONE (11:37)
[2021-12-26] MEDS ORDERED: ONDANSETRON 4 MG/2 ML VIAL IVPUSH ONE (11:37)
[2021-12-26] MEDS ORDERED: FAMOTIDINE 20 MG/50 ML IVPB 20 MG/50 ML MG IVPB ONE ×2 (11:37→13:01)
[2021-12-26] MEDS ORDERED: SODIUM CHLORIDE 1,000 ML IV STA (11:37)
[2021-12-26] MEDS ORDERED: ONDANSETRON 4 MG/2 ML VIAL ONE (11:57)
[2021-12-26] MEDS ORDERED: ACETAMINOPHEN INJECTION 100 ML IVPB ONE (11:57)
[2021-12-26 12:18] LABS: BASO % 0.5 % (0-2.0); EOS % 0.9 % (0-4.5); HEMATOCRIT 42.5 % (32.4-45.2); LYMPH % 30.5 % (8-40); MCH 29.2 pg (25.7-33.7); MEAN CELL VOLUME 88.4 fl (80-96); MEAN PLT VOLUME 8.3 fl (7.5-11.1); MONO % 4.5 % (3.8-10.2); NEUT % 63.6 % (42.8-82.8); PLATELET COUNT 167 10^3/uL (134-434); RDW 13.3 % (11.6-15.6); WHITE BLOOD COUNT 5.6 K/mm3 (4.0-10.0)
[2021-12-26 12:43] LABS: URINE APPEARANCE CLEAR; URINE BILIRUBIN NEGATIVE (NEGATIVE); URINE COLOR YELLOW; URINE GLUCOSE (UA) NEGATIVE (NEGATIVE); URINE KETONE NEGATIVE (NEGATIVE); URINE LEUK ESTERASE NEGATIVE (NEGATIVE); URINE NITRITE NEGATIVE (NEGATIVE); URINE PROTEIN NEGATIVE (NEGATIVE); URINE UROBILINOGEN 0.2 mg/dL (0.2-1.0)
[2021-12-26 13:28] LABS: CALCIUM 8.9 mg/dL (8.5-10.1)
[2021-12-26 13:29] LABS: ALBUMIN 3.6 g/dl (3.4-5.0)
[2021-12-26 13:32] LABS: CREATININE 0.5 mg/dL (0.55-1.3)
[2021-12-26 13:33] LABS: BILIRUBIN,TOTAL 0.5 mg/dL (0.2-1); TOT PROT 6.8 g/dl (6.4-8.2)
[2021-12-26 18:51] VITALS: BP 133/62; PULSE 67; TEMP 97.6
== END 2021-12-26 18:51 | disposition home or self-care (01) ==
LOC: JER 11:09
PROC: 3E0333Z Introduction of Anti-inflammatory into Peripheral Vein, Percutaneous Approach (ICD-10-PCS; principal; 2021-12-26)
PROC: 3E033GC Introduction of Other Therapeutic Substance into Peripheral Vein, Percutaneous Approach (ICD-10-PCS; 2021-12-26)
PROC: 3E033GC Introduction of Other Therapeutic Substance into Peripheral Vein, Percutaneous Approach (ICD-10-PCS; 2021-12-26)
PROC: 3E0337Z Introduction of Electrolytic and Water Balance Substance into Peripheral Vein, Percutaneous Approach (ICD-10-PCS; 2021-12-26)
DX: R10.13 Epigastric pain (principal); R10.9 Unspecified abdominal pain
CPT/HCPCS: 36415; 71045-TC-FY; 74177-TC; 80053; 81003; 83690; 84484; 85025; 87086; 93005; 93010; 99285-25; Q9967

== ENCOUNTER 2022-12-20 18:23 | Emergency (ER) | payer OTHER ==
[2022-12-20 18:43] VITALS: BP 167/73; PULSE 65; RESP 18; TEMP 97.5; BMI 28.5
[2022-12-20] MEDS ORDERED: ACETAMINOPHEN 325 MG TABLET (FP) PO ONE (20:53)
[2022-12-20] MEDS ORDERED: LIDOCAINE 5% TOPICAL PATCH TP ONE (20:53)
[2022-12-20] MEDS ORDERED: LIDOCAINE 5% TOPICAL PATCH ONE (20:58)
[2022-12-20] MEDS ORDERED: ACETAMINOPHEN 500 MG TABLET (FP) ONE (20:58)
[2022-12-20 21:43] LABS: BASO % 0.6 % (0-2.0); EOS % 0.7 % (0-4.5); HEMATOCRIT 43.8 % (32.4-45.2); HEMOGLOBIN 14.4 GM/dL (10.7-15.3); LYMPH % 26.6 % (8-40); MCH 28.8 pg (25.7-33.7); MCHC 32.9 g/dl (32.0-36.0); MEAN CELL VOLUME 87.7 fl (80-96); MEAN PLT VOLUME 8.6 fl (7.5-11.1); MONO % 4.1 % (3.8-10.2); PLATELET COUNT 174 10^3/uL (134-434); RDW 13.4 % (11.6-15.6); WHITE BLOOD COUNT 9.1 K/mm3 (4.0-10.0)
[2022-12-20 21:54] LABS: INR 0.98 (0.83-1.09); PROTHROMBIN TIME (PATIENT) 11.4 SEC (9.7-13.0)
[2022-12-20 21:56] LABS: ACTIVATED PTT 34.3 SECONDS (25.2-36.5)
[2022-12-20] MEDS ORDERED: LIDOCAINE PATCH REMOVAL MC SCH (22:00)
[2022-12-20 22:04] LABS: CALCIUM 9.1 mg/dL (8.5-10.1)
[2022-12-20 22:05] LABS: BLOOD UREA NITROGEN 16.2 mg/dL (7-18)
[2022-12-20 22:08] LABS: CREATININE 0.6 mg/dL (0.55-1.3)
[2022-12-20 22:09] LABS: BILIRUBIN,TOTAL 0.5 mg/dL (0.2-1)
== END 2022-12-21 00:56 | disposition home or self-care (01) ==
LOC: JERFT 18:23
DX: M25.512 Pain in left shoulder (principal)
CPT/HCPCS: 36415; 71046-TC-FY; 73030-TC-LT-FY; 80053; 84484; 85025; 85610; 85730; 93005; 93010; 99285-25